=== PATIENT | male | born 1955 | race Caucasian/White ===

== ENCOUNTER 2017-10-01 14:45 | Emergency (ER) | payer OTHER ==
[~2017-10-01] VITALS: Ht 177.8 cm; Wt 68.0 kg
[~2017-10-01 14:45] MED LIST: METH10 PO; OXYC30 PO; OXYCODONE PO
[2017-10-01] MEDS ORDERED: METHADONE PO (15:46)
[2017-10-01] MEDS ORDERED: BUSPAR PO (15:46)
[2017-10-01 16:54] LABS: Influenza A Negative (NEGATIVE); Influenza B Negative (NEGATIVE)
[2017-10-01 17:00] LABS: BASOPHILS ABSOLUTE AUTO 0.03 K/mm3 (0.00-0.23); BASOPHILS PERCENT AUTO 0 % (0-2); EOSINOPHILS ABSOLUTE AUTO 0.02 K/mm3 (0.00-0.68); EOSINOPHILS PERCENT AUTO 0 % (0-6); Hematocrit 42.8 % (37.0-53.0); Hemoglobin 13.9 g/dL (13.5-17.5); IMMATURE GRAN ABSOLUTE AUTO 0.01 K/mm3 (0.00-0.10); IMMATURE GRAN PERCENT AUTO 0 % (0-1); LYMPHOCYTES ABSOLUTE AUTO 0.35 K/mm3 (0.84-5.20); LYMPHOCYTES PERCENT AUTO 5 % (21-46); MONOCYTES PERCENT AUTO 8 % (4-13); Mean Corpuscular HGB 30.3 pg (26.0-34.0); Mean Corpuscular HGB Conc 32.5 g/dL (31.5-36.5); Mean Corpuscular Volume 93 fL (80-100); NEUTROPHILS ABSOLUTE AUTO 6.28 K/mm3 (1.96-9.15); NEUTROPHILS PERCENT AUTO 86 % (41-73); RDW Coefficient Variation 12.4 % (11.7-14.2); RDW Standard Deviation 42.6 fL (35.1-46.3); Red Blood Cell Count 4.59 M/mm3 (4.30-5.90); White Blood Cell Count 7.29 K/mm3 (4.00-11.30)
[2017-10-01 17:02] LABS: Mean Platelet Volume 10.6 fL (9.1-12.4); Platelet Count 87 K/mm3 (150-400)
[2017-10-01 17:10] LABS: Alanine Aminotransfer (ALT/SGP 15 U/L (12-78); Albumin, Blood 3.5 g/dL (3.4-5.0); Alk Phos 48 U/L (50-136); Anion Gap 9 mmol/L (6-16); Aspartate Aminotrans (AST/SGOT 27 U/L (12-37); Bilirubin, Total 0.3 mg/dL (0.1-1.0); Blood Urea Nitrogen 19 mg/dL (8-24); Bun/Creatinine Ratio 15.4 (12.0-20.0); CO2, Blood 24 mmol/L (21-32); Calcium, Blood 8.9 mg/dL (8.5-10.1); Chloride, Blood 104 mmol/L (98-108); Creatinine, Blood 1.23 mg/dL (0.60-1.20); Ethanol (Alcohol), Blood, Med <3 mg/dL; Globulin, Blood 3.5 g/dL (2.2-4.0); Glomerular Filtration Rate >60 (60-); Glucose, Blood 88 mg/dL (70-99); Potassium, Blood 4.1 mmol/L (3.5-5.5); Sodium, Blood 137 mmol/L (136-145)
[2017-10-01 17:15] LABS: Source, Urine Clean Catch
[2017-10-01 17:17] LABS: Bilirubin, Urine Neg (Neg); Blood, Urine 3+ (Neg); Glucose Qualitative, Urine Neg (Neg); Ketones, Urine Neg (Neg); Leukocyte Esterase, Urine 1+ (Neg); Nitrite, Urine Neg (Neg); Protein, Urine 2+ (Neg); Specific Gravity, Urine 1.025 (1.003-1.022); Urobilinogen, Urine NORM (Normal)
[2017-10-01 17:23] LABS: Appearance, Urine Clear (Clear); Color, Urine Yellow (P-Yellow)
[2017-10-01 17:24] LABS: Bacteria Many /hpf; Hyaline Casts 0-2 /lpf (0-2); Mucus Light (0-Heavy); Red Blood Cells, Urine 0-2 /hpf (0-2); Squamous Epithelial Cells Not Seen /hpf (Few)
[2017-10-01 17:29] LABS: U Amphetamine Screen Not Detected; U Barbituate Screen Not Detected; U Benzodiazapine Screen Not Detected; U Cannabinoids Screen DETECTED; U Cocaine Screen Not Detected; U Methadone Screen DETECTED; U Methamphetamine Screen Not Detected
[2017-10-01 17:30] LABS: U Buprenorphine Screen Not Detected; U Opiates Screen Not Detected; U Oxycodone Screen Not Detected; U Phencyclidine Screen Not Detected; U Propoxyphene Screen Not Detected
[2017-10-01] MEDS ORDERED: Zithromax250 MG PO (17:40)
== END 2017-10-01 17:59 | disposition home or self-care (01) ==
LOC: ER 14:45
PROVIDERS: Emergency Medicine
DX: J18.9 Pneumonia, unspecified organism (principal); R53.83 Other fatigue; Z79.899 Other long term (current) drug therapy; F17.200 Nicotine dependence, unspecified, uncomplicated
CPT/HCPCS: 36415; 71046; 80053; 81001; 83690; 85025; 87086; 87804; 93005; 93010; 96374; 99284; G0480; J2405; J7030

== ENCOUNTER 2017-10-02 23:46 | Emergency (ER) | payer OTHER ==
[~2017-10-02] VITALS: Ht 177.8 cm; Wt 68.0 kg
[~2017-10-02 23:46] MED LIST changes: +BUSPAR PO; +METHADONE PO; +Zithromax250 MG PO
[2017-10-03 01:11] LABS: BASOPHILS ABSOLUTE AUTO 0.02 K/mm3 (0.00-0.23); BASOPHILS PERCENT AUTO 0 % (0-2); Hematocrit 41.8 % (37.0-53.0); Mean Corpuscular HGB 30.4 pg (26.0-34.0); Mean Corpuscular HGB Conc 33.5 g/dL (31.5-36.5); Mean Corpuscular Volume 91 fL (80-100); Mean Platelet Volume 9.8 fL (9.1-12.4); Platelet Count 104 K/mm3 (150-400); RDW Coefficient Variation 12.4 % (11.7-14.2); RDW Standard Deviation 40.9 fL (35.1-46.3); Red Blood Cell Count 4.61 M/mm3 (4.30-5.90); White Blood Cell Count 7.62 K/mm3 (4.00-11.30)
[2017-10-03 01:19] LABS: EOSINOPHILS PERCENT AUTO 0 % (0-6); IMMATURE GRAN ABSOLUTE AUTO 0.03 K/mm3 (0.00-0.10); IMMATURE GRAN PERCENT AUTO 0 % (0-1); LYMPHOCYTES ABSOLUTE AUTO 0.65 K/mm3 (0.84-5.20); LYMPHOCYTES PERCENT AUTO 9 % (21-46); MONOCYTES ABSOLUTE AUTO 0.51 K/mm3 (0.16-1.47); MONOCYTES PERCENT AUTO 7 % (4-13); NEUTROPHILS ABSOLUTE AUTO 6.41 K/mm3 (1.96-9.15); NEUTROPHILS PERCENT AUTO 84 % (41-73)
[2017-10-03 01:29] LABS: Alanine Aminotransfer (ALT/SGP 19 U/L (12-78); Albumin/Globulin Ratio 0.7 (0.8-1.8); Alk Phos 47 U/L (50-136); Anion Gap 8 mmol/L (6-16); Aspartate Aminotrans (AST/SGOT 47 U/L (12-37); Bilirubin, Total 0.3 mg/dL (0.1-1.0); Blood Urea Nitrogen 23 mg/dL (8-24); Bun/Creatinine Ratio 17.8 (12.0-20.0); CO2, Blood 26 mmol/L (21-32); Calcium, Blood 8.7 mg/dL (8.5-10.1); Chloride, Blood 101 mmol/L (98-108); Creatinine, Blood 1.29 mg/dL (0.60-1.20); Globulin, Blood 4.1 g/dL (2.2-4.0); Glomerular Filtration Rate >60 (60-); Glucose, Blood 99 mg/dL (70-99); Potassium, Blood 4.2 mmol/L (3.5-5.5); Sodium, Blood 135 mmol/L (136-145); Total Protein, Blood 7.1 g/dL (6.4-8.2)
== END 2017-10-03 03:20 | disposition left against medical advice (07) ==
LOC: ER 23:46
PROVIDERS: Emergency Medicine
DX: Z53.21 Procedure and treatment not carried out due to patient leaving prior to being seen by health care provider (principal); J44.9 Chronic obstructive pulmonary disease, unspecified; F17.210 Nicotine dependence, cigarettes, uncomplicated
CPT/HCPCS: 71046; 80053; 83605; 85025; 87040; 93005; 93010; 96365; 96366; 99283; J1956

== ENCOUNTER 2017-10-04 23:32 | Inpatient (IN) | payer OTHER ==
[~2017-10-04] VITALS: Ht 177.8 cm; Wt 68.0 kg
[2017-10-05 00:50] LABS: BASOPHILS ABSOLUTE AUTO 0.02 K/mm3 (0.00-0.23); BASOPHILS PERCENT AUTO 1 % (0-2); EOSINOPHILS PERCENT AUTO 0 % (0-6); Hematocrit 38.2 % (37.0-53.0); Hemoglobin 12.8 g/dL (13.5-17.5); Mean Corpuscular HGB 30.3 pg (26.0-34.0); Mean Corpuscular HGB Conc 33.5 g/dL (31.5-36.5); Mean Corpuscular Volume 90 fL (80-100); Mean Platelet Volume 9.6 fL (9.1-12.4); Platelet Count 110 K/mm3 (150-400); RDW Coefficient Variation 12.4 % (11.7-14.2); RDW Standard Deviation 41.2 fL (35.1-46.3); Red Blood Cell Count 4.23 M/mm3 (4.30-5.90); White Blood Cell Count 3.72 K/mm3 (4.00-11.30)
[2017-10-05 00:51] LABS: IMMATURE GRAN ABSOLUTE AUTO 0.01 K/mm3 (0.00-0.10); IMMATURE GRAN PERCENT AUTO 0 % (0-1); LYMPHOCYTES ABSOLUTE AUTO 0.34 K/mm3 (0.84-5.20); LYMPHOCYTES PERCENT AUTO 9 % (21-46); MONOCYTES ABSOLUTE AUTO 0.42 K/mm3 (0.16-1.47); MONOCYTES PERCENT AUTO 11 % (4-13); NEUTROPHILS ABSOLUTE AUTO 2.93 K/mm3 (1.96-9.15); NEUTROPHILS PERCENT AUTO 79 % (41-73)
[2017-10-05 01:04] LABS: Alanine Aminotransfer (ALT/SGP 34 U/L (12-78); Albumin, Blood 2.9 g/dL (3.4-5.0); Albumin/Globulin Ratio 0.7 (0.8-1.8); Alk Phos 47 U/L (50-136); Anion Gap 9 mmol/L (6-16); Aspartate Aminotrans (AST/SGOT 68 U/L (12-37); Bilirubin, Total 0.4 mg/dL (0.1-1.0); Blood Urea Nitrogen 21 mg/dL (8-24); Bun/Creatinine Ratio 21.3 (12.0-20.0); CO2, Blood 25 mmol/L (21-32); Calcium, Blood 8.7 mg/dL (8.5-10.1); Chloride, Blood 100 mmol/L (98-108); Creatinine, Blood 0.99 mg/dL (0.60-1.20); Globulin, Blood 4.3 g/dL (2.2-4.0); Glomerular Filtration Rate >60 (60-); Glucose, Blood 81 mg/dL (70-99); Sodium, Blood 134 mmol/L (136-145); Total Protein, Blood 7.2 g/dL (6.4-8.2); Troponin I <0.015 ng/mL (0.000-0.040)
[2017-10-05 08:36] LABS: Influenza A Negative (NEGATIVE); Influenza B Negative (NEGATIVE)
[2017-10-06 05:31] LABS: HCV Non Reactive (NR)
[2017-10-06] MEDS ORDERED: ACET325 PO (11:01)
[2017-10-06] MEDS ORDERED: GUAI600T33 PO (11:03)
[2017-10-06] MEDS ORDERED: ALBU2.5V5 NEB (11:03)
[2017-10-06] MEDS ORDERED: DULERA 100 MCG/13 GM INH (11:04)
[2017-10-06] MEDS ORDERED: LEVO750 PO (11:04)
== END 2017-10-06 16:04 | disposition home or self-care (01) | DRG 871 ==
LOC: ER 23:32 → ICUW 10-05 02:22 → SURS 10-05 02:22 → ICUW 10-05 02:24 → SURS 10-05 11:00 → ENPENDDIS 10-06 12:19 → SURS 10-06 16:04
PROVIDERS: Family Medicine; Internal Medicine; Physician Assistant
DX: A41.9 Sepsis, unspecified organism (principal); J18.9 Pneumonia, unspecified organism; J96.01 Acute respiratory failure with hypoxia; J44.0 Chronic obstructive pulmonary disease with (acute) lower respiratory infection; E87.1 Hypo-osmolality and hyponatremia; G89.4 Chronic pain syndrome; M54.9 Dorsalgia, unspecified; F17.210 Nicotine dependence, cigarettes, uncomplicated; Z79.891 Long term (current) use of opiate analgesic; Z79.899 Other long term (current) drug therapy
CPT/HCPCS: 36415; 71046; 80053; 80074; 83605; 83880; 84484; 85025; 87040; 87804; 92610; 93005; 93010; 94640; 94760; 94761; 99285; G8996; G8997; G8998; J0456; J0696; J2405; J7030; J7050; Q2038

== ENCOUNTER → 2023-12-02 | Outpatient (CLI) | payer OTHER ==
[~2023-12-02] MED LIST changes: +ACET325 PO; +ALBU2.5V5 NEB; +DULERA 100 MCG/13 GM INH; +GUAI600T33 PO; +LEVO750 PO
[2023-12-02 17:30] LABS: Albumin/Globulin Ratio 1.2 (0.8-1.8); Bilirubin, Total 0.5 mg/dL (0.1-1.0); Bun/Creatinine Ratio 14.8 (12.0-20.0); Calcium, Blood 10.2 mg/dL (8.5-10.1); Creatinine, Blood 1.22 mg/dL (0.60-1.20); Globulin, Blood 3.3 g/dL (2.2-4.0); Potassium, Blood 4.3 mmol/L (3.5-5.5); Total Protein, Blood 7.3 g/dL (6.4-8.2)
== END ==
LOC: LAB 15:26 → LAB SHORT 15:26
PROVIDERS: Family Medicine
DX: I10 Essential (primary) hypertension (principal)
CPT/HCPCS: 80053

== ENCOUNTER 2024-07-31 03:21 | Emergency (ER) | payer OTHER ==
[~2024-07-31] VITALS: Ht 180.3 cm; Wt 72.6 kg
[2024-07-31 03:40] VITALS: BP 165/91
[2024-07-31] MEDS ORDERED: Bumetanide 1 MG Tab PO ONE (03:45)
[2024-07-31] MEDS ORDERED: Doxycycline Hyclate 100 MG TAB PO ONE (03:45)
[2024-07-31] MEDS ORDERED: DOXY100 PO (03:53)
[2024-07-31] MEDS ORDERED: BUME2 PO (03:53)
== END 2024-07-31 04:04 | disposition home or self-care (01) ==
LOC: ER 03:21
DX: L03.116 Cellulitis of left lower limb (principal); J44.9 Chronic obstructive pulmonary disease, unspecified; I10 Essential (primary) hypertension; F17.210 Nicotine dependence, cigarettes, uncomplicated; Z79.899 Other long term (current) drug therapy
CPT/HCPCS: 99283; A9270

== ENCOUNTER 2024-09-14 06:43 | Observation (INO) | payer OTHER ==
[~2024-09-14] VITALS: Ht 167.6 cm; Wt 68.0 kg
[~2024-09-14 06:43] MED LIST changes: +BUME2 PO; +DOXY100 PO; -METHADONE PO; +Methadose10 MG/1 ML PO
[2024-09-14 07:57] LABS: CORONAVIRUS COVID-19 AG Negative (NEGATIVE); INFLUENZA A AG Negative (NEGATIVE); INFLUENZA B AG Negative (NEGATIVE)
[2024-09-14 07:58] LABS: BASOPHILS ABSOLUTE AUTO 0.03 K/mm3 (0.00-0.23); BASOPHILS PERCENT AUTO 1 % (0-2); Base Excess Venous 4.7 mmol/L; EOSINOPHILS ABSOLUTE AUTO 0.14 K/mm3 (0.00-0.68); EOSINOPHILS PERCENT AUTO 2 % (0-6); Hematocrit 40.2 % (37.0-53.0); Hemoglobin 13.5 g/dL (13.5-17.5); IMMATURE GRAN ABSOLUTE AUTO 0.04 K/mm3 (0.00-0.10); IMMATURE GRAN PERCENT AUTO 1 % (0-1); LYMPHOCYTES PERCENT AUTO 19 % (21-46); MONOCYTES PERCENT AUTO 10 % (4-13); Mean Corpuscular HGB Conc 33.6 g/dL (31.5-36.5); Mean Corpuscular Volume 92 fL (80-100); Mean Platelet Volume 8.9 fL (9.1-12.4); NEUTROPHILS ABSOLUTE AUTO 4.27 K/mm3 (1.96-9.15); NEUTROPHILS PERCENT AUTO 68 % (41-73); PCO2 Venous 63.9 mmHg (38-42); Platelet Count 168 K/mm3 (150-400); RDW Standard Deviation 41.4 fL (35.1-46.3); Red Blood Cell Count 4.35 M/mm3 (4.30-5.90); White Blood Cell Count 6.28 K/mm3 (4.00-11.30)
[2024-09-14 08:05] LABS: Source, Urine Clean Catch
[2024-09-14 08:23] LABS: Appearance, Urine Clear (Clear); Bilirubin, Urine Neg (Neg); Blood, Urine Neg (Neg); Color, Urine Yellow (P-Yellow); Glucose Qualitative, Urine Neg (Neg); Ketones, Urine Neg (Neg); Leukocyte Esterase, Urine Neg (Neg); Nitrite, Urine Neg (Neg); Protein, Urine 2+ (Neg); Specific Gravity, Urine 1.025 (1.003-1.022); Urobilinogen, Urine 1+ (Normal)
[2024-09-14 08:25] LABS: Bacteria Not Seen /hpf; Hyaline Casts 0-2 /lpf (0-2); Mucus Light (0-Heavy); Red Blood Cells, Urine 0-2 /hpf (0-2); Squamous Epithelial Cells Not Seen /hpf (Few); White Blood Cells, Urine 0-2 /hpf (0-5)
[2024-09-14 08:28] LABS: Albumin, Blood 3.8 g/dL (3.4-5.0); Bilirubin, Total 0.4 mg/dL (0.1-1.0); Bun/Creatinine Ratio 20.9 (12.0-20.0); Calcium, Blood 10.2 mg/dL (8.5-10.1); Creatinine, Blood 1.1 mg/dL (0.60-1.20); Globulin, Blood 3.8 g/dL (2.2-4.0); Magnesium, Blood 2.2 mg/dL (1.6-2.4); Potassium, Blood 4.1 mmol/L (3.5-5.5); Total Protein, Blood 7.6 g/dL (6.4-8.2)
[2024-09-14 08:28] LABS: U Amphetamine Screen Not Detected; U Barbituate Screen Not Detected; U Benzodiazapine Screen Not Detected; U Buprenorphine Screen Not Detected; U Cannabinoids Screen Not Detected; U Cocaine Screen Not Detected; U Methadone Screen DETECTED; U Methamphetamine Screen Not Detected; U Opiates Screen Not Detected; U Oxycodone Screen Not Detected; U Phencyclidine Screen Not Detected
[2024-09-14] MEDS ORDERED: Ipratropium/Albuterol SulF 2.5-0.5MG/3 ML Amp INH ONE (08:30)
[2024-09-14] MEDS ORDERED: Azithromycin 250 MG Tab PO ONE (08:30)
[2024-09-14] MEDS ORDERED: PredniSONE 20 MG Tab PO ONE (08:30)
[2024-09-14] MEDS ORDERED: Buspirone HCl15 MG PO (08:51)
[2024-09-14] MEDS ORDERED: ALBUTEROL SULFATE HF (09:44)
[2024-09-14] MEDS ORDERED: ALBU90OI INH (09:47)
[2024-09-14] MEDS ORDERED: LATUDA20 M1 PO (09:49)
[2024-09-14] MEDS ORDERED: HYDCHL25 PO (09:49)
[2024-09-14] MEDS ORDERED: LOSA50 PO (09:49)
[2024-09-14] MEDS ORDERED: COMBIVENT RESPIM4 G1 INH (09:49)
[2024-09-14] MEDS ORDERED: OMEPRAZOLE20 M2 PO (09:50)
[2024-09-14] MEDS ORDERED: INDERAL XL80 M1 PO (09:51)
[2024-09-14] MEDS ORDERED: ROSUVASTATIN CA10 MG PO (09:51)
[2024-09-14] MEDS ORDERED: SILD50TA PO (09:52)
[2024-09-14 09:54] LABS: Base Excess Venous 4.7 mmol/L; PCO2 Venous 59.7 mmHg (38-42); pH Blood Venous 7.32 (7.34-7.37)
[2024-09-14] MEDS ORDERED: FLU VACC TS2024-25(6MOS UP)/PF 45 MCG/0.5 ML SYRINGE IM SCH (10:40)
[2024-09-14] MEDS ORDERED: Albuterol 2.5 MG/3 ML VIAL INH PRN (10:40)
[2024-09-14] MEDS ORDERED: Prochlorperazine Edisylate 10 mg Vial IV PRN (10:40)
[2024-09-14] MEDS ORDERED: Ipratropium/Albuterol SulF 2.5-0.5MG/3 ML Amp INH PRN (10:55)
[2024-09-14] MEDS ORDERED: Losartan Potassium 50 MG Tab PO SCH (11:00)
[2024-09-14] MEDS ORDERED: BusPIRone HCl 10 MG Tab PO SCH (14:00)
[2024-09-14 14:05] VITALS: BP 140/67
[2024-09-14] MEDS ORDERED: Seroquel Xr50 MG PO (16:12)
[2024-09-14] MEDS ORDERED: Rosuvastatin Calcium 10 MG Tab PO SCH (18:00)
--- NOTE | 2024-09-14 18:12 | NUR ---
SHIFT SUMMARY PT A&OX2 W/ CONFUSION, VSS, AMB IND, TOLERATING PO, AND DENIED PAIN. 1:1 SITTER PRESENT. PT PACED ROOM T/O SHIFT, BUT WAS REDIRECTABLE. THIS RN SPOKE TO PT'S NIECE RAFAEL AND PROVIDED UPDATE W/ PT'S AUTHORIZATION. RAFAEL'S PHONE NUMBER LOCATED IN PHYSICAL CHART. PT SEMI COOPERATIVE W/ CARE AND REFUSED SOME CARE AT TIMES. CALL LIGHT WITHIN REACH.
[2024-09-14 20:07] VITALS: BP 138/83
[2024-09-14] MEDS ORDERED: Sennosides 8.6 MG Tab PO SCH (21:00)
[2024-09-14] MEDS ORDERED: QUEtiapine Fumarate 50 MG TAB PO SCH (21:00)
[2024-09-15 04:00] VITALS: BP 115/77
[2024-09-15] MEDS ORDERED: Methadone HCL 10 MG TAB PO SCH (06:00)
[2024-09-15] MEDS ORDERED: Omeprazole 20 MG CapCR PO SCH (06:00)
--- NOTE | 2024-09-15 06:07 | NUR ---
SHIFT SUMMARY PT MOVED FROM ROOM 308 TO ROOM 347 AT START OF SHIFT. PT ORIENTED TO SELF AND "ROSEBURG". PT COOPERATIVE WITH SOME CARE, BUT REFUSING TO CHANGE INTO A HOSPITAL GOWN, REFUSING SKIN CHECK, AND VERY RELUCTANTLY ALLOWED THIS RN TO FLUSH HIS IV. PT AMBULATING IN ROOM AND WANDERS INTO HALLWAY TO WALK, EASY TO REDIRECT BACK TO HIS ROOM. FOUND CADDIE, CIGARETTES, AND A RIO- THESE WERE PLACED IN HIS LOCKED MEDICATION DRAWER. PT SLEPT SHORT PERIODS THROUGH THE NIGHT. BED IN LOWEST POSITION, CALL LIGHT WITHIN REACH.
[2024-09-15 07:21] VITALS: BP 129/69
[2024-09-15 08:39] LABS: BASOPHILS ABSOLUTE AUTO 0.03 K/mm3 (0.00-0.23); BASOPHILS PERCENT AUTO 0 % (0-2); EOSINOPHILS ABSOLUTE AUTO 0.01 K/mm3 (0.00-0.68); EOSINOPHILS PERCENT AUTO 0 % (0-6); Hematocrit 37.4 % (37.0-53.0); Hemoglobin 12.8 g/dL (13.5-17.5); IMMATURE GRAN ABSOLUTE AUTO 0.03 K/mm3 (0.00-0.10); IMMATURE GRAN PERCENT AUTO 0 % (0-1); LYMPHOCYTES ABSOLUTE AUTO 1.19 K/mm3 (0.84-5.20); LYMPHOCYTES PERCENT AUTO 14 % (21-46); MONOCYTES ABSOLUTE AUTO 0.82 K/mm3 (0.16-1.47); MONOCYTES PERCENT AUTO 9 % (4-13); Mean Corpuscular HGB 31.3 pg (26.0-34.0); Mean Corpuscular HGB Conc 34.2 g/dL (31.5-36.5); Mean Corpuscular Volume 91 fL (80-100); Mean Platelet Volume 9.2 fL (9.1-12.4); NEUTROPHILS ABSOLUTE AUTO 6.67 K/mm3 (1.96-9.15); NEUTROPHILS PERCENT AUTO 76 % (41-73); Platelet Count 172 K/mm3 (150-400); RDW Coefficient Variation 11.9 % (11.7-14.2); RDW Standard Deviation 40.1 fL (35.1-46.3); Red Blood Cell Count 4.09 M/mm3 (4.30-5.90); White Blood Cell Count 8.75 K/mm3 (4.00-11.30)
[2024-09-15] MEDS ORDERED: Enoxaparin 40 MG/0.4 ML SYR SC SCH (09:00)
[2024-09-15] MEDS ORDERED: Metoprolol Succinate 25 MG TABCR PO SCH (09:00)
[2024-09-15] MEDS ORDERED: HydroCHLOROthiazide 25 mg Tab PO SCH (09:00)
[2024-09-15] MEDS ORDERED: PredniSONE 20 MG Tab PO SCH (09:00)
[2024-09-15 09:15] LABS: Albumin, Blood 3.4 g/dL (3.4-5.0); Albumin/Globulin Ratio 0.9 (0.8-1.8); Bilirubin, Total 0.7 mg/dL (0.1-1.0); Bun/Creatinine Ratio 19.8 (12.0-20.0); Creatinine, Blood 1.06 mg/dL (0.60-1.20); Globulin, Blood 3.6 g/dL (2.2-4.0); Potassium, Blood 3.8 mmol/L (3.5-5.5)
--- NOTE | 2024-09-15 14:57 | NUR ---
THIS RN ASKED PT WHO HE WOULD LIKE TO HAVE NEXT OF KIN, PT WAS HESITANT TO MAKE A DECISION AT FIRST BUT THEN PT STATED THAT HE WISHED HIS NIECE, RAFAEL "ERIKA" TO BE LISTED FIRST CONTACT AND TO LIST FRIEND "MICHELET" TO BE LISTED SECOND CONTACT. THIS RN ASKED IF PT FELT SAFE GOING BACK TO LIVE WITH MICHELET. PT STATED THAT HE "WANTED TO GET OUT OF THAT PLACE". AND DOES NOT WANT TO GO BACK WITH MICHELET/HOME AT DISCHARGE.
[2024-09-15 15:15] VITALS: BP 104/66
[2024-09-15 19:24] VITALS: BP 105/66
--- NOTE | 2024-09-15 19:48 | NUR ---
NO ACUTE CHANGES. PT CALM AND COOPERATIVE WITH STAFF THIS SHIFT. CONFUSED BUT REDIRECTABLE. INDEPENDENTLY WALKING IN CHEN WAY AND IN ROOM. CASE MANAGEMENT INVOLVED. PT VERBALIZED THAT HE DID NOT WANT TO BE DISCHARGED TO HOME OF MICHELET. PT STATED THAT HE HAS BEEN TRYING TO GET OUT AND THAT WAS WHY HE WAS "HERE" (HOSPITAL).
[2024-09-16 03:51] VITALS: BP 145/82
[2024-09-16 04:23] VITALS: BP 120/75
--- NOTE | 2024-09-16 04:57 | NUR ---
SHIFT SUMMARY PT CONTINUES TO BE ORIENTED TO SELF AND "ROSE[place]G". WANDERS IN ROOM AND CHEN WITH STEADY GAIT, EASY TO REDIRECT. PT REFUSING TO CHANGE INTO HOSPITAL PANTS AND GOWN, REFUSING SKIN ASSESSMENT. SLEPT SHORT PERIODS THROUGH THE NIGHT. BED IN LOWEST POSITION, CALL LIGHT WITHIN REACH, SIDERAILS UP X2.
[2024-09-16 07:18] VITALS: BP 118/78
[2024-09-16 09:09] LABS: Bicarbonate Venous 26.6 mmol/L (24.0-30.0); PCO2 Venous 43.4 mmHg (38-42); pH Blood Venous 7.41 (7.34-7.37)
[2024-09-16 15:07] VITALS: BP 117/95
[2024-09-16] MEDS ORDERED: HYDCHL25 PO (15:27)
[2024-09-16] MEDS ORDERED: LOSA50 PO (15:27)
[2024-09-16] MEDS ORDERED: METO25ER PO (15:28)
[2024-09-16] MEDS ORDERED: ROSUVASTATIN CA10 MG PO (15:28)
[2024-09-16] MEDS ORDERED: SENN187 PO (15:29)
[2024-09-16] MEDS ORDERED: Prednisone10 MG PO (15:30)
[2024-09-16] MEDS ORDERED: SPIRIVA RESPIMAT4 G3 INH (15:31)
--- NOTE | 2024-09-16 17:47 | NUR ---
PT DISCHARGED HOME WITH HOME HEALTH. THIS RN WAS NOT AVAILABLE TO DISCUSS DISCHARGE INSTRUCTIONS WITH PT AND CA FRIEND. ASHLEE LACEY DISCUSSED DISCHARGE PAPERWORK WITH PT AND FRIEND. ALERT AND CONFUSED. INDEPENDENT
== END 2024-09-16 16:38 | disposition home health service (06) ==
LOC: ER 06:43 → ERHOLD 06:44 → MEDS 06:44 → ERHOLD 13:35 → MEDS 13:59
PROVIDERS: Internal Medicine; Student in an Organized Health Care Education/Training Program; ADMIT Internal Medicine
DX: G93.41 Metabolic encephalopathy (principal); J44.1 Chronic obstructive pulmonary disease with (acute) exacerbation; J96.02 Acute respiratory failure with hypercapnia; I10 Essential (primary) hypertension; G89.4 Chronic pain syndrome; F03.90 Unspecified dementia, unspecified severity, without behavioral disturbance, psychotic disturbance, mood disturbance, and anxiety; K21.9 Gastro-esophageal reflux disease without esophagitis; E78.5 Hyperlipidemia, unspecified; F17.210 Nicotine dependence, cigarettes, uncomplicated; Z86.73 Personal history of transient ischemic attack (TIA), and cerebral infarction without residual deficits; Z79.899 Other long term (current) drug therapy
CPT/HCPCS: 36415; 70450; 71045; 80053; 81001; 82140; 82803; 83735; 85025; 87428-QW; 93005; 93010; 94640; 94664; 94760; 96372; 99285-25; A9270; G0378; J1650; J7512

== ENCOUNTER → 2024-10-05 | Outpatient (CLI) | payer OTHER ==
[~2024-10-05] MED LIST changes: +ALBU90OI INH; +ALBUTEROL SULFATE HF; +Buspirone HCl15 MG PO; +COMBIVENT RESPIM4 G1 INH; +HYDCHL25 PO; +INDERAL XL80 M1 PO; +LATUDA20 M1 PO; +LOSA50 PO; +METO25ER PO; +OMEPRAZOLE20 M2 PO; +Prednisone10 MG PO; +ROSUVASTATIN CA10 MG PO; +SENN187 PO; +SILD50TA PO; +SPIRIVA RESPIMAT4 G3 INH; +Seroquel Xr50 MG PO
[2024-10-05 16:31] LABS: BASOPHILS ABSOLUTE AUTO 0.05 K/mm3 (0.00-0.23); BASOPHILS PERCENT AUTO 1 % (0-2); EOSINOPHILS ABSOLUTE AUTO 0.19 K/mm3 (0.00-0.68); EOSINOPHILS PERCENT AUTO 4 % (0-6); Hematocrit 42.6 % (37.0-53.0); Hemoglobin 14.1 g/dL (13.5-17.5); IMMATURE GRAN ABSOLUTE AUTO 0.01 K/mm3 (0.00-0.10); IMMATURE GRAN PERCENT AUTO 0 % (0-1); LYMPHOCYTES ABSOLUTE AUTO 1.42 K/mm3 (0.84-5.20); LYMPHOCYTES PERCENT AUTO 29 % (21-46); MONOCYTES PERCENT AUTO 8 % (4-13); Mean Corpuscular HGB 30.9 pg (26.0-34.0); Mean Corpuscular HGB Conc 33.1 g/dL (31.5-36.5); Mean Corpuscular Volume 93 fL (80-100); Mean Platelet Volume 9.5 fL (9.1-12.4); NEUTROPHILS ABSOLUTE AUTO 2.89 K/mm3 (1.96-9.15); NEUTROPHILS PERCENT AUTO 58 % (41-73); Platelet Count 206 K/mm3 (150-400); RDW Standard Deviation 41.6 fL (35.1-46.3); Red Blood Cell Count 4.56 M/mm3 (4.30-5.90); White Blood Cell Count 4.96 K/mm3 (4.00-11.30)
[2024-10-05 16:54] LABS: Percent Saturation 35.4 % (20.0-50.0)
[2024-10-05 17:14] LABS: Albumin, Blood 3.9 g/dL (3.4-5.0); Albumin/Globulin Ratio 1.1 (0.8-1.8); Bilirubin, Total 0.5 mg/dL (0.1-1.0); Bun/Creatinine Ratio 16.7 (12.0-20.0); Creatinine, Blood 1.2 mg/dL (0.60-1.20); Globulin, Blood 3.6 g/dL (2.2-4.0); Potassium, Blood 4.1 mmol/L (3.5-5.5); Total Protein, Blood 7.5 g/dL (6.4-8.2)
== END ==
LOC: LAB 14:32 → LAB SHORT 14:32
PROVIDERS: Family Medicine
DX: D64.9 Anemia, unspecified (principal); I10 Essential (primary) hypertension; I70.90 Unspecified atherosclerosis; R60.0 Localized edema; Z87.891 Personal history of nicotine dependence; G30.8 Other Alzheimer's disease; F02.C3 Dementia in other diseases classified elsewhere, severe, with mood disturbance
CPT/HCPCS: 80053; 82607; 82728; 82746; 83540; 83550; 83880; 85025

== ENCOUNTER 2024-11-01 14:55 | Emergency (ER) | payer OTHER ==
[~2024-11-01] VITALS: Ht 172.7 cm; Wt 61.2 kg
[2024-11-01 15:10] VITALS: BP 129/76
[2024-11-01] MEDS ORDERED: CEPH500 PO (15:24)
== END 2024-11-01 15:34 | disposition home or self-care (01) ==
LOC: ER 14:55
DX: L03.116 Cellulitis of left lower limb (principal); L03.115 Cellulitis of right lower limb; F17.210 Nicotine dependence, cigarettes, uncomplicated; K21.9 Gastro-esophageal reflux disease without esophagitis; J44.9 Chronic obstructive pulmonary disease, unspecified; Z79.52 Long term (current) use of systemic steroids; Z79.899 Other long term (current) drug therapy
CPT/HCPCS: 99282

== ENCOUNTER 2024-12-29 15:04 | Emergency (ER) | payer OTHER ==
[~2024-12-29] VITALS: Ht 177.8 cm; Wt 77.1 kg
[~2024-12-29 15:04] MED LIST changes: +CEPH500 PO
[2024-12-29 15:12] VITALS: BP 139/82
[2024-12-29 16:00] LABS: BASOPHILS ABSOLUTE AUTO 0.04 K/mm3 (0.00-0.23); BASOPHILS PERCENT AUTO 1 % (0-2); EOSINOPHILS ABSOLUTE AUTO 0.08 K/mm3 (0.00-0.68); EOSINOPHILS PERCENT AUTO 1 % (0-6); Hematocrit 41.1 % (37.0-53.0); Hemoglobin 13.9 g/dL (13.5-17.5); IMMATURE GRAN ABSOLUTE AUTO 0.02 K/mm3 (0.00-0.10); IMMATURE GRAN PERCENT AUTO 0 % (0-1); LYMPHOCYTES ABSOLUTE AUTO 1.25 K/mm3 (0.84-5.20); LYMPHOCYTES PERCENT AUTO 16 % (21-46); MONOCYTES ABSOLUTE AUTO 0.76 K/mm3 (0.16-1.47); MONOCYTES PERCENT AUTO 10 % (4-13); Mean Corpuscular HGB 31.2 pg (26.0-34.0); Mean Corpuscular HGB Conc 33.8 g/dL (31.5-36.5); Mean Corpuscular Volume 92 fL (80-100); Mean Platelet Volume 8.8 fL (9.1-12.4); NEUTROPHILS ABSOLUTE AUTO 5.47 K/mm3 (1.96-9.15); NEUTROPHILS PERCENT AUTO 72 % (41-73); Platelet Count 218 K/mm3 (150-400); RDW Coefficient Variation 11.9 % (11.7-14.2); RDW Standard Deviation 40.3 fL (35.1-46.3); Red Blood Cell Count 4.45 M/mm3 (4.30-5.90); White Blood Cell Count 7.62 K/mm3 (4.00-11.30)
[2024-12-29 16:19] LABS: Albumin, Blood 3.9 g/dL (3.4-5.0); Albumin/Globulin Ratio 1.1 (0.8-1.8); Bilirubin, Total 0.6 mg/dL (0.1-1.0); Bun/Creatinine Ratio 16.3 (12.0-20.0); Calcium, Blood 10.5 mg/dL (8.5-10.1); Creatinine, Blood 1.04 mg/dL (0.60-1.20); Globulin, Blood 3.7 g/dL (2.2-4.0); Potassium, Blood 4.3 mmol/L (3.5-5.5); Total Protein, Blood 7.6 g/dL (6.4-8.2)
== END 2024-12-29 17:14 | disposition home or self-care (01) ==
LOC: ER 15:04
PROVIDERS: Student in an Organized Health Care Education/Training Program
DX: R06.02 Shortness of breath (principal); J44.9 Chronic obstructive pulmonary disease, unspecified; I10 Essential (primary) hypertension; K21.9 Gastro-esophageal reflux disease without esophagitis; F17.210 Nicotine dependence, cigarettes, uncomplicated; Z79.52 Long term (current) use of systemic steroids; Z79.899 Other long term (current) drug therapy
CPT/HCPCS: 71045; 80053; 84484; 85025; 93005; 93010; 99285-25

== ENCOUNTER 2025-01-04 07:37 | Emergency (ER) | payer OTHER ==
[~2025-01-04] VITALS: Ht 170.2 cm; Wt 68.0 kg
[2025-01-04 08:33] LABS: BASOPHILS ABSOLUTE AUTO 0.05 K/mm3 (0.00-0.23); BASOPHILS PERCENT AUTO 1 % (0-2); EOSINOPHILS ABSOLUTE AUTO 0.18 K/mm3 (0.00-0.68); EOSINOPHILS PERCENT AUTO 3 % (0-6); Hematocrit 40.3 % (37.0-53.0); Hemoglobin 13.1 g/dL (13.5-17.5); IMMATURE GRAN ABSOLUTE AUTO 0.02 K/mm3 (0.00-0.10); IMMATURE GRAN PERCENT AUTO 0 % (0-1); LYMPHOCYTES ABSOLUTE AUTO 1.18 K/mm3 (0.84-5.20); LYMPHOCYTES PERCENT AUTO 21 % (21-46); MONOCYTES ABSOLUTE AUTO 0.52 K/mm3 (0.16-1.47); MONOCYTES PERCENT AUTO 9 % (4-13); Mean Corpuscular HGB 30.3 pg (26.0-34.0); Mean Corpuscular HGB Conc 32.5 g/dL (31.5-36.5); Mean Corpuscular Volume 93 fL (80-100); Mean Platelet Volume 8.7 fL (9.1-12.4); NEUTROPHILS ABSOLUTE AUTO 3.66 K/mm3 (1.96-9.15); NEUTROPHILS PERCENT AUTO 65 % (41-73); Platelet Count 272 K/mm3 (150-400); RDW Coefficient Variation 11.8 % (11.7-14.2); RDW Standard Deviation 40.7 fL (35.1-46.3); Red Blood Cell Count 4.32 M/mm3 (4.30-5.90); White Blood Cell Count 5.61 K/mm3 (4.00-11.30)
[2025-01-04 08:50] LABS: Albumin, Blood 3.6 g/dL (3.4-5.0); Bilirubin, Total 0.3 mg/dL (0.1-1.0); Bun/Creatinine Ratio 18.1 (12.0-20.0); Calcium, Blood 9.8 mg/dL (8.5-10.1); Creatinine, Blood 1.16 mg/dL (0.60-1.20); Globulin, Blood 3.6 g/dL (2.2-4.0); Magnesium, Blood 2.1 mg/dL (1.6-2.4); Phosphorus, Blood 2.4 mg/dL (2.5-4.9); Total Protein, Blood 7.2 g/dL (6.4-8.2)
[2025-01-04 09:30] VITALS: BP 117/104
[2025-01-04 10:09] LABS: Influenza A, PCR NEGATIVE (NEGATIVE); Influenza B, PCR NEGATIVE (NEGATIVE); Resp Syncytial Virus, PCR NEGATIVE (NEGATIVE); SARS-Cov-2 (COVID-19) PCR, MMC NEGATIVE (NEGATIVE)
[2025-01-04] MEDS ORDERED: DOXY100 PO (11:25)
[2025-01-04] MEDS ORDERED: Doxycycline Hyclate 100 MG TAB PO ONE (11:25)
== END 2025-01-04 11:34 | disposition home or self-care (01) ==
LOC: ER 07:37
PROVIDERS: Student in an Organized Health Care Education/Training Program
DX: J40 Bronchitis, not specified as acute or chronic (principal); F03.90 Unspecified dementia, unspecified severity, without behavioral disturbance, psychotic disturbance, mood disturbance, and anxiety; I10 Essential (primary) hypertension; J43.9 Emphysema, unspecified; F17.210 Nicotine dependence, cigarettes, uncomplicated; Z79.899 Other long term (current) drug therapy; Z11.52 Encounter for screening for COVID-19
CPT/HCPCS: 0241U; 71046; 80053; 83735; 83880; 84100; 84484; 85025; 93005; 93010; 99285-25; A9270

== ENCOUNTER 2025-01-18 12:36 | Emergency (ER) | payer OTHER ==
[~2025-01-18] VITALS: Ht 177.8 cm; Wt 72.6 kg
[2025-01-18 12:42] VITALS: BP 105/68
== END 2025-01-18 17:16 | disposition home or self-care (01) ==
LOC: ER 12:36
DX: J44.9 Chronic obstructive pulmonary disease, unspecified (principal); F03.90 Unspecified dementia, unspecified severity, without behavioral disturbance, psychotic disturbance, mood disturbance, and anxiety; K21.9 Gastro-esophageal reflux disease without esophagitis; I10 Essential (primary) hypertension; F17.210 Nicotine dependence, cigarettes, uncomplicated; Z79.899 Other long term (current) drug therapy
CPT/HCPCS: 99282

== ENCOUNTER 2025-04-04 07:21 | Inpatient (IN) | payer OTHER ==
[~2025-04-04] VITALS: Ht 177.8 cm; Wt 54.2 kg
[~2025-04-04 07:21] MED LIST changes: -Methadose10 MG/1 ML PO
[2025-04-04] MEDS ORDERED: Ipratropium/Albuterol SulF 2.5-0.5MG/3 ML Amp INH ONE (08:00)
[2025-04-04 08:06] LABS: BASOPHILS ABSOLUTE AUTO 0.03 K/mm3 (0.00-0.23); BASOPHILS PERCENT AUTO 0 % (0-2); EOSINOPHILS ABSOLUTE AUTO 0.00 K/mm3 (0.00-0.68); EOSINOPHILS PERCENT AUTO 0 % (0-6); Hematocrit 43.9 % (37.0-53.0); Hemoglobin 14.7 g/dL (13.5-17.5); IMMATURE GRAN ABSOLUTE AUTO 0.01 K/mm3 (0.00-0.10); IMMATURE GRAN PERCENT AUTO 0 % (0-1); LYMPHOCYTES ABSOLUTE AUTO 0.28 K/mm3 (0.84-5.20); LYMPHOCYTES PERCENT AUTO 3 % (21-46); MONOCYTES ABSOLUTE AUTO 0.52 K/mm3 (0.16-1.47); MONOCYTES PERCENT AUTO 6 % (4-13); Mean Corpuscular HGB Conc 33.5 g/dL (31.5-36.5); Mean Corpuscular Volume 93 fL (80-100); NEUTROPHILS ABSOLUTE AUTO 7.78 K/mm3 (1.96-9.15); NEUTROPHILS PERCENT AUTO 90 % (41-73); NRBC ABSOLUTE 0.00 K/mm3 (0.00-0.02); NRBC Auto 0.0 /100 WBC (0.0-0.2); Platelet Count 216 K/mm3 (150-400); RDW Coefficient Variation 12.3 % (11.7-14.2); RDW Standard Deviation 42.5 fL (35.1-46.3)
[2025-04-04 08:22] LABS: Alanine Aminotransfer (ALT/SGP 22.0 U/L (12-78); Albumin, Blood 4.1 g/dL (3.4-5.0); Albumin/Globulin Ratio 0.9 (0.8-1.8); Anion Gap 7.0 mmol/L (3-11); Aspartate Aminotrans (AST/SGOT 31.0 U/L (12-37); Bilirubin, Total 0.8 mg/dL (0.1-1.0); Blood Urea Nitrogen 17.0 mg/dL (8-24); CO2, Blood 28.0 mmol/L (21-32); Calcium, Blood 10.3 mg/dL (8.5-10.1); Chloride, Blood 103.0 mmol/L (98-108); Creatinine, Blood 0.91 mg/dL (0.60-1.20); Globulin, Blood 4.4 g/dL (2.2-4.0); Glucose, Blood 159.0 mg/dL (70-99); Potassium, Blood 4.2 mmol/L (3.5-5.5); Sodium, Blood 134.0 mmol/L (136-145); Total Protein, Blood 8.5 g/dL (6.4-8.2)
[2025-04-04 08:53] LABS: pH Blood Venous 7.31 (7.34-7.37)
[2025-04-04] MEDS ORDERED: Albuterol 2.5 MG/3 ML VIAL INH SCH (09:30)
[2025-04-04 09:31] LABS: Influenza A, PCR NEGATIVE (NEGATIVE); Influenza B, PCR NEGATIVE (NEGATIVE); Resp Syncytial Virus, PCR NEGATIVE (NEGATIVE); SARS-Cov-2 (COVID-19) PCR, MMC NEGATIVE (NEGATIVE)
[2025-04-04] MEDS ORDERED: Ondansetron HCl 2 MG / ML 2ML Vial IV PRN (11:50)
[2025-04-04] MEDS ORDERED: Ipratropium/Albuterol SulF 2.5-0.5MG/3 ML Amp INH SCH (11:50)
[2025-04-04] MEDS ORDERED: Furosemide 10 MG / ML 2ML Vial IV SCH (12:00)
[2025-04-04] MEDS ORDERED: HydrALAZINE HCl 20 MG / ML 1ML Vial IV PRN (13:05)
[2025-04-04] MEDS ORDERED: Tiotropium Bromide 2.5 MCG/ACT MIST INHAL (10 ACT/4 GM) INH SCH (13:10)
[2025-04-04 13:17] VITALS: BP 137/72
[2025-04-04 16:27] LABS: Source, Urine Clean Catch
[2025-04-04 16:32] LABS: Bilirubin, Urine Neg (Neg); Glucose Qualitative, Urine Neg (Neg); Ketones, Urine Neg (Neg); Leukocyte Esterase, Urine Neg (Neg); Protein, Urine Neg (Neg); Specific Gravity, Urine 1.015 (1.003-1.022); Urobilinogen, Urine NORM (Normal)
[2025-04-04 16:36] LABS: Color, Urine Pale Yellow (P-Yellow)
--- NOTE | 2025-04-04 18:36 | NUR ---
1310- PT TO MEDICAL FLOOR IN STABLE CONDITION. PT ON RA.
--- NOTE | 2025-04-04 18:36 | NUR ---
SUMMARY- PT IS AAOX1 TO SELF ONLY THIS SHIFT. PT DOES NOT USE THE CALL LIGHT APPROPRIATELY. PT IS IMPULSIVE, BUT IS NOT TRYING TO GET OOB OFTEN UNLESS HE HAS TO USE THE BATHROOM. PT IS MODERATLY REDIRECTABLE. PT ON RA. X1 ASSIST TO BATHROOM WITH WALKER AND GAIT BELT. PT DENIES PAIN. NO ACUTE EVENTS THIS SHIFT.
[2025-04-04 19:52] VITALS: BP 116/60
[2025-04-04 23:58] VITALS: BP 122/68
[2025-04-05 04:02] VITALS: BP 107/61
--- NOTE | 2025-04-05 05:03 | NUR ---
SHIFT SUMMARY: PT AOX1-[address] TO A DEGREE. AT TIMES KNOWS HES AT THE HOSPITAL. OTHER TIMES HE THINKS HE IS AT [facility]. PT CA,\LM AND COOPERATIVE IN CARE UNTIL NEEDING TO BE WOKEN UP FOR LABS. WOULD NOT HOLD STILL OR ALLOW STAFF TO TOUCH HIM. PT LOUDLY REQUEST TO LET HIM SLEEP AND COME BACK LATER. PT HAVING REGULAR DELUSIONS AND HALLUCINATIONS. SOMETIMES ENDORSING THAT THERE IS A DOG IN THE ROOM AND AT TIMES SPEAKING WORD SALAD. HAS BEEN CONTINENT IN VOIDS, EITHER USING THE URINAL OR THE RESTROOM. IS IMPULSIVE, ATTEMPTING TO GET UP DESPITE BEING UNSTEADY ON FEET BUT CAN BE REDIRECTED. BED ALARM IN PLACE. SOME ANXIETY AND IMPULSIVENESS, MEDICATED PER EMR. PT IN BED SLEEPING, BED IN LOWEST POSITION, CALL LIGHT IN REACH. CONTINUING CARE.
[2025-04-05 07:36] VITALS: BP 124/66
[2025-04-05 08:52] LABS: Anion Gap 8.0 mmol/L (3-11); Blood Urea Nitrogen 23.0 mg/dL (8-24); CO2, Blood 31.0 mmol/L (21-32); Calcium, Blood 9.7 mg/dL (8.5-10.1); Chloride, Blood 101.0 mmol/L (98-108); Creatinine, Blood 1.06 mg/dL (0.60-1.20); Glucose, Blood 90.0 mg/dL (70-99); Potassium, Blood 3.7 mmol/L (3.5-5.5); Sodium, Blood 136.0 mmol/L (136-145)
[2025-04-05] MEDS ORDERED: Enoxaparin 40 MG/0.4 ML SYR SC SCH (09:00)
--- NOTE | 2025-04-05 10:23 | NUR ---
0830- VERBAL FROM KARTHIK TO ORDER RESPIRATORY PANEL.
[2025-04-05] MEDS ORDERED: CefTRIAXone Sodium 1,000 MG in NS 100 ML IV SCH (11:00)
[2025-04-05] MEDS ORDERED: NS 250 ML IV PRN (11:05)
[2025-04-05 11:27] VITALS: BP 147/96
[2025-04-05 11:45] LABS: Influenza A/2009-H1 Not Detected (NOT DETECT); SARS-Cov-2 (COVID-19), BioFire Not Detected (NOT DETECT)
[2025-04-05 15:33] VITALS: BP 147/98
[2025-04-05 19:52] VITALS: BP 130/77
--- NOTE | 2025-04-05 19:53 | NUR ---
SUMMARY- AAOX0 THIS SHIFT. PT KNEW HIS NAME BUT COULD NOT TELL ME HIS . X1 ASSIST TO THE BATHROOM. PT TRIED GETTING OOB MULTIPLE TIMES THIS SHIFT. ONCE WE STARTED BRINGING THE PT TO THE BATHROOM TO URINATE WITH A X1 ASSIST, PT WAS LESS AGGITATED. PT'S BEHAVIOR IMPROVED WHEN BROUGHT TO BATHROOM VERSUS USING THE URINAL. PT WAS ON RA AT THE BEGINNING OF THE SHIFT, BUT PT WAS PLACED ON 4L THIS AFTERNOON AND IS STILL ON 4L VIA NC. PT IS NOT REDIRECTABLE AND CAN BE SLIGHTLY AGGRESSIVE. PT DENIED ANY PAIN THIS SHIFT.
--- NOTE | 2025-04-05 20:25 | NUR ---
PATIENT OUT OF BED X TWO ACTIVATING BED ALARM. NOT ABLE TO FOLLOW DIRECTIONS AT THIS TIME. HX DEMENTIA. BACK IN BED. BORIS.
--- NOTE | 2025-04-05 23:35 | NUR ---
PATIENT CONFUSED OUT OF BED AND BED ALARMED. HALLUCINATING SEEING HIS DOG NAMED BEAR ON THE SHELF IN THE ROOM. PATIENT PULLED GOWN OFF AND PUT BED SHEET AROUND HIMSELF. TELE STICKERS REPLACED AND BATTERIES. BACK IN BED. BORIS.
[2025-04-06 00:37] VITALS: BP 132/74
--- NOTE | 2025-04-06 04:01 | NUR ---
SHIFT SUMMARY PATIENT HAD NO ACUTE CHANGES. ALERT TO SELF WITH CONFUSION. SBA IN ROOM AND NOT FOLLOWING DIRECTIONS AT THIS TIME. MULTIPLE OUT OF BED ACTIVATING BED ALARM. DENIES CHEST PAIN, SOB, AND N/V. VSS/AFEBRILE. ON 4L O2 NC AND PULLS OFF AT TIMES. RT IN FOR BREATHING TX. UP MOST OF THE NIGHT AND TRAZODONE 25 MG GIVEN PER EMAR FOR INSOMNIA. CALL LIGHT IN REACH. BED IN LOWEST POSITION AND ALARM ON. WILL CONTINUE TO MONITOR UNTIL DAY SHIFT NURSE ASSUMES CARE.
[2025-04-06 04:36] VITALS: BP 114/68
[2025-04-06 05:30] LABS: Anion Gap 12.0 mmol/L (3-11); Blood Urea Nitrogen 39.0 mg/dL (8-24); CO2, Blood 30.0 mmol/L (21-32); Calcium, Blood 9.6 mg/dL (8.5-10.1); Chloride, Blood 100.0 mmol/L (98-108); Creatinine, Blood 1.37 mg/dL (0.60-1.20); Glucose, Blood 111.0 mg/dL (70-99); Potassium, Blood 3.7 mmol/L (3.5-5.5); Sodium, Blood 138.0 mmol/L (136-145)
[2025-04-06 08:08] VITALS: BP 120/64
--- NOTE | 2025-04-06 09:37 | NUR ---
Pt up in room, alert, confused, doesn't know where he is or what he's doing, pulled tele and gown off, very busy, ambulated into the bathroom, took po meds slowly, with lots of direction, asked him to get back into bed multiple times, he says ok and continues rummaging through his clothing, lungs are very dim t/o, sats are 99% on r/a, no cough noted, hrr, distant sounds, did have sig edema in b/l le, but is down to +1, cap refill<3 sec, vs stable, afebrile, pulled iv out early this am, btx4, abd flat soft nontender, voids via pull ups, skin c/w/d, red b/l tammy, kenyon nivees, call light in reach.
[2025-04-06 11:54] VITALS: BP 117/72
--- NOTE | 2025-04-06 14:25 | NUR ---
pt has been standing up and taking things off continuously, redirects for about five minutes. is cooperative, call light in reach.
--- NOTE | 2025-04-06 16:21 | NUR ---
will be moving pt to scu when bed available. pt does not eat unless someone assist him. call light in reach.
[2025-04-06 16:51] VITALS: BP 132/78
--- NOTE | 2025-04-06 17:49 | NUR ---
pt continually gets up and comes out in caballero, nearly went into another pt room, is easily redirected, no acute changes this shift. call light in reach.
--- NOTE | 2025-04-06 18:21 | NUR ---
TRANSFER NOTE PATIENT TRANSFERED TO ROOM 352 FROM [facility] THIS EVENING AT 1820. PATIENT ALERT, ELOPEMENT RISK, CONFUSED. UNABLE TO FOLLOW SIMPLE DIRECTIONS. PLEASANT WITH STAFF. REPORT RECIEVED FROM ELDER. NO OTHER CONCERNS AT THIS TIME, WILL CONTINUE TO MONITOR.
[2025-04-06 19:19] VITALS: BP 122/77
--- NOTE | 2025-04-06 19:39 | NUR ---
NEW TELEPHONE ORDERS RECEIVED FROM THE ON-CALL HOSPITALIST ROBB: - D/C TRAZADONE QHS PRN AND -NEW ORDER FOR QUETAPINE 25-50MG QHS PRN. ENTERED TO [employer], SEE EMAR.
--- NOTE | 2025-04-07 03:04 | NUR ---
SHIFT SUMMARY 1:1 SITTER AT DIRECT OBSERVATION. HS SEROQUEL 50MG ADMINISTERED ORDERED. AT SHIFT CHANGE PT WALKING WEARING THE HOSPITAL GOWN A CAPE, AND WEARING ATTENDS. ATTEMPTING TO WALK ON THE HALLWAYS. PT HAS ONE WORD SENTENCES, THAT DON'T MAKE SENSE. PT IS UNABLE TO FOLLOW SIMPLE DIRECTIONS. PT THEN SOON AFTER SETTLED FOR BED. PT RESTING T/O THE NIGHT HRS W/O ANY ACUTE DISTRESS. VSS. ON RA, O2 SAT'S>90%. NO COUGH NOTED. NO SIGNS OF PAIN PER FACE SCALE. BED AT THE LOWEST POSITION, CALL LIGHT W/I REACH. PT IS ALERT, NOT ORIENTED. WAS WONDERING IN THE HOSPITAL ROOM AT THE BEGINNING OF THIS SHIFT. FALL RISK.
[2025-04-07 05:10] VITALS: BP 145/80
[2025-04-07 07:32] VITALS: BP 137/72
--- NOTE | 2025-04-07 10:27 | NUR ---
PER DR ANGELES, ANUSHA GIVE ALL HEART PILLS. CHANGE METOPROLOL TO 12.5 MG NOW. RECHECK H/R IS 68-72
[2025-04-07 10:34] LABS: Anion Gap 8.0 mmol/L (3-11); Blood Urea Nitrogen 37.0 mg/dL (8-24); CO2, Blood 34.0 mmol/L (21-32); Calcium, Blood 10.7 mg/dL (8.5-10.1); Chloride, Blood 96.0 mmol/L (98-108); Creatinine, Blood 1.13 mg/dL (0.60-1.20); Glucose, Blood 93.0 mg/dL (70-99); Potassium, Blood 3.2 mmol/L (3.5-5.5); Sodium, Blood 135.0 mmol/L (136-145)
[2025-04-07 14:58] VITALS: BP 103/68
[2025-04-07 16:45] VITALS: BP 121/70
--- NOTE | 2025-04-07 17:50 | NUR ---
PT DOING SOME BETTER TODAY. SOME MORE TALKATIVE. A/O X1-2 NOW. AMBULATES TO BATHROOM 1 ASST. DID GET MORE ANXIOUS THIS AFT. CALLED DR ANGELES FOR MEDS. PT STATES FEELING SOME BETTER. NO FURTHER CONCERNS NOTED. BED IN LOW POSITION, CALL LITE IN REACH, SITTER AT BEDSIDE FOR HIGH FALL RISK.
[2025-04-07 19:02] VITALS: BP 103/70
--- NOTE | 2025-04-08 01:05 | NUR ---
@0100 THIS TECHNICAL BUSINESS SYSTEMS ANALYST SPOKE ON THE PHONE WITH THE ON-CALL HOSPITALIST R/T PT ANXIOUS AND ASKING FOR A CIGARETTES AND TO GO SMOKE. PT IS PACING IN THE ROOM, ORIENTED X0 AT THIS TIME. 1:[address] CHARGE NURSE WAS NOTIFIED.
--- NOTE | 2025-04-08 03:25 | NUR ---
SHIFT SUMMARY PT CONTINUES ON DROPLET ISO D/T DX OF RHINO VIRUS. PT ALSO HAS SITTER, 1:1 CLOSE OBSERVATION. PT AWAKE, UP PACING T/O THE NIGHT. PT EXIT SEEKING. A/O X0. UNABLE TO REORIENT THE PT. PT ABLE TO VOID STANDING BY THE TOILET. PT RUBBING HIS FINGERS ON THE HOSPITAL GOWN. PT NOT SETTLING TO SIT DOWN IN THE CHAIR NOR THE HOSPITAL BED. IF REDIRECTED PT PUSHES THE STAFF AWAY FROM THE CLOSE OBSERVATION. PT ATTEMPTING TO PULL ON THE O2 TUBING ON THE WALL. MEDICATED PER EMAR. ONE-TIME ORDER OF ATIVAN 1MG PO NOT EFFECTIVE. ON-CALL HOSPITALIST WAS NOTIFIED. PT REQUESTING TO GO TO HAVE A CIGARETTE. THIS [facility] LAB TECHNICIAN REQUESTED NICOTINE PATCH AND GUM FROM THE HOSPITALIST. BED AT THE LOWEST POSITION. 1:1 SITTER IN THE ROOM WITH THE PT. (CLINICAL SITTER). CHARGE NURSE NOTIFIED.
--- NOTE | 2025-04-08 04:45 | NUR ---
@0582 INITIATED ALLISON, PER CHARGE NURSE SALOME.
[2025-04-08 07:11] VITALS: BP 134/88
--- NOTE | 2025-04-08 17:16 | NUR ---
SHIFT SUMMARY PT IS A/O TO SELF. IMPULSIVE. 1:[address] NO ACUTE CHANGES THROUGHOUT THIS SHIFT. ON RA, SATS >90%. UP WITH 1 PERSON ASSIST.
[2025-04-08 18:29] LABS: Anion Gap 8.0 mmol/L (3-11); Blood Urea Nitrogen 36.0 mg/dL (8-24); CO2, Blood 29.0 mmol/L (21-32); Calcium, Blood 11.0 mg/dL (8.5-10.1); Chloride, Blood 102.0 mmol/L (98-108); Creatinine, Blood 1.14 mg/dL (0.60-1.20); Glucose, Blood 116.0 mg/dL (70-99); Potassium, Blood 4.0 mmol/L (3.5-5.5); Sodium, Blood 135.0 mmol/L (136-145)
[2025-04-08 19:11] VITALS: BP 98/70
--- NOTE | 2025-04-09 02:38 | NUR ---
SHIFT SUMMARY NO ACUTE EVENTS DURING THIS SHIFT. PT CONTINUES ON DROPLET ISO D/T RHINOVIRUS. PT CONTINUES IN ALLISON D/T UNSAFE BEHAVIORS, DX DEMENTIA. PT CONTINUES TO HAVE 1:1 NON-CLINICAL SITTER FOR SAFETY. PT AWAKE MOST OF THIS SHIFT, SHUFFLING IN BED, INCONTINENT OF URINE. MOSTLY COOPERATIVE WITH CARE, DOES RAISE HIS ARMS OR ATTEMPT TO KICK THE STAFF WHILE GIVING CARE. AIRWAY PATENT, CIRCULATION CHECKED PER PROTOCOL. PRN ZYPREXA ADMINISTERED, NOT EFFECTIVE. PT IMPULSIVE AT TIMES. PT REFUSES NASAL CANNULA, ON RA. SNACKS AND FLUIDS OFFERED, PT ATE 100% OATMEAL SNACK. MEDS WHOLE WITH H20. BED AT THE LOWEST POSITION, CALL LIGHT W/I REACH. RAILS UP, BED LOCKED. CONTINUING TO KEEP THE PT ON ALLISON FOR SAFETY, WILL EVAL Q2HRS PER PROTOCOLS.
[2025-04-09 04:04] VITALS: BP 146/89
--- NOTE | 2025-04-09 04:09 | NUR ---
pt is satting in 80% at ra. pt refuses to keep the nasal cannula on. pt pulling on cords, lines, clothes and lupe. Charge nurse Mick notified.
[2025-04-09 07:44] VITALS: BP 148/81
[2025-04-09 15:18] VITALS: BP 123/87
--- NOTE | 2025-04-09 19:24 | NUR ---
SHIFT SUMMARY PT IS A/O TO SELF. IMPULSIVE, EASILY REDIRECTABLE. PT SLEEPING FOR MUCH OF THE DAY. ON 4-5L NC, SATS >95%. UP WITH 1 PERSON ASSIST WITH GAIT BELT. PT HAS LITTLE APPETITE OR ORAL INTAKE. PT IS CONT/INCONT OF BLADDER. MEDS TAKEN WHOLE IN PUDDING OR APPLESAUCE.
[2025-04-09 20:35] VITALS: BP 109/79
[2025-04-10 02:33] VITALS: BP 136/84
--- NOTE | 2025-04-10 04:32 | NUR ---
SHIFT SUMMARY: PT AOX1-0 IMPULSIVE, BUT REDIRECTABLE. CON/ INCONT, SOMETIMES ABLE TO USE URINAL WITH ASSISTANCE, SOMETIMES SOAKING THE BED REQ BED CHANGE. PT COOPERATIVE IN CARE, ALTHOUGH IS IMPULISIVE, TRYING TO GET UP CONSTANTLY. ALLISON VEST IN PLACE. PT REGULARLY REMOVES O2. IS ABLE TO TAKE MEDS PO WITH A LOT OF CONVINCING AND REMINDING OF WHAT IS HAPPENING. IS A 1PA BUT IS VERY WEAK AND UNSTEADY ON FEET. NO ACUTE OVERNIGHT EVENTS. PT IN BED RESTING, BED IN LOWEST POSITION, CALL LIGHT IN REACH. CONTINUING CARE.
[2025-04-10 07:58] VITALS: BP 151/98
[2025-04-10] MEDS ORDERED: Ipratropium/Albuterol SulF 2.5-0.5MG/3 ML Amp INH PRN (08:55)
[2025-04-10 12:07] LABS: Anion Gap 4.0 mmol/L (3-11); Blood Urea Nitrogen 40.0 mg/dL (8-24); CO2, Blood 31.0 mmol/L (21-32); Calcium, Blood 12.1 mg/dL (8.5-10.1); Chloride, Blood 100.0 mmol/L (98-108); Creatinine, Blood 1.22 mg/dL (0.60-1.20); Glucose, Blood 125.0 mg/dL (70-99); Potassium, Blood 4.4 mmol/L (3.5-5.5); Sodium, Blood 131.0 mmol/L (136-145)
[2025-04-10 15:25] VITALS: BP 105/84
[2025-04-10 19:15] VITALS: BP 128/79
--- NOTE | 2025-04-10 19:51 | NUR ---
SHIFT SUMMARY: NO NEW OR ACUTE CHANGES DURING THIS SHIFT. PLAN FOR PRISON PLACEMENT. PLAN OF CARE ONGOING AT THIS TIME, WILL CONTINUE TO MONITOR.
[2025-04-11 02:45] VITALS: BP 143/85
--- NOTE | 2025-04-11 05:11 | NUR ---
SHIFT SUMMARY A&OX1-2 TO SELF AND TOWN. CONFUSED AND FORGETFUL. TALK IS OFTEN NOT RELEVANT TO CONVERSATION. AGITATED OFF AND ON THROUGHOUT SHIFT. PT WAS IN SOFT RESTRAINTS AT START OF SHIFT BUT WAS ABLE TO GET OUT OF THESE X 2. PT THEN PUT IN TUFF CUFFS DUE TO FALL RISK, AGITATION AND INABILITY TO MAKE NEEDS KNOWN APPROPRIATELY. PT REFUSED MUCINEX. ZYPREXA GIVEN FOR AGITATION. PT ONLY TOOK SMALL BITES OF PUDDING AND A FEW SIPS OF WATER OTHERWISE REFUSES FOOD AND DRINK. CONTINUES TO BE ON O2 VIA NC AT 4 LPM. RESTING COMFORTABLY IN BED AT LOWEST POSITION WITH RAILS X 2 AND CALL LIGHT WITHIN REACH.
[2025-04-11 08:03] VITALS: BP 127/91
--- NOTE | 2025-04-11 11:06 | NUR ---
RETURNED CALL TO KEN LEAD NURSE AT [facility] FOR UPDATE ON PATIENT. KEN CONCERNED ABOUT METHADONE DOSING FOR PATIENT. STATING PATIENT GETS AGITATED IF NOT ON MEDICATION.
[2025-04-11] MEDS ORDERED: Methadose10 MG/1 ML PO (13:28)
[2025-04-11 15:18] VITALS: BP 126/92
--- NOTE | 2025-04-11 16:02 | NUR ---
Patient is lying in bed and resting. He easily awakens to the sound of his name. He talks quietly and appears withdrawn. He tells me that he is having a "rough time," but does not speak to ellaborate on the topic. After introductions he spaeks only with yes and no answers but only when he wants answer. He does verbally and with a head nod agree to have a prayer said for him. I gladly supply prayer. I sit with him for some time providing a calming presence. I will continue to remain available to patient and family.
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
[2025-04-11 19:02] VITALS: BP 112/85
[2025-04-12 04:44] VITALS: BP 98/67
--- NOTE | 2025-04-12 05:28 | NUR ---
SHIFT SUMMARY A&O X1 TO SELF ONLY. CONFUSED AND TALK IS NON-SENSICAL TO CONVERSATION. PT HAD AN INCONTINENT EPISODE AND WAS NOT ABLE TO UNDERSTAND HOW TO USE THE URINAL. HE CONTINUES TO REMOVE HIS O2 DUE TO AGITATION BUT THIS IS ABLE TO BE REAPPLIED LATER WHEN PT IS OFFERED. PT GIVEN MEDS IN PUDDING BUT PT SPIT 3 OF 4 MEDS OUT AT A LATER TIME HE APPEARED TO HAVE POCKETED THEM. PT HAS BEEN ABLE TO REST COMFORTABLY IN HIS BED BUT HAS BEEN VERY DIFFICULT TO REPOSITION. MULTIPLE ATTEMPTS TRIED BUT PT BECAME FRUSTRATED. PT CURRENTLY RESTING IN HIS BED AT LOWEST POSITION, RAILS X2 AND CALL LIGHT WITHIN REACH. SITTER PRESENT AND MONITORING PT FOR SAFETY.
[2025-04-12 08:07] VITALS: BP 100/73
[2025-04-12 14:55] LABS: Anion Gap 7.0 mmol/L (3-11); Blood Urea Nitrogen 65.0 mg/dL (8-24); CO2, Blood 34.0 mmol/L (21-32); Calcium, Blood 9.9 mg/dL (8.5-10.1); Chloride, Blood 98.0 mmol/L (98-108); Creatinine, Blood 1.87 mg/dL (0.60-1.20); Glucose, Blood 88.0 mg/dL (70-99); Potassium, Blood 3.6 mmol/L (3.5-5.5); Sodium, Blood 135.0 mmol/L (136-145)
--- NOTE | 2025-04-12 15:31 | NUR ---
RETURNED A CALL FROM ELMIRA AT [facility]. SHE RELAYED INFORMATION ABOUT THE PATIENTS CHANGES OVER THE LAST FEW YEARS. PATIENT IS LAYING IN BED. ASKED HOW HE WAS DOING TODAY AND HE RELAYED THAT HE WAS DOING BETTER THAN YESTERDAY. PATIENTS LEGS AND FEET ARE MOTTELING. PATIENT IS PENDING GUARDINSHIP AND PLACMENT. DISCUSSED WITH RADIOLOGY PHYSICIAN.
--- NOTE | 2025-04-12 17:52 | NUR ---
PATIENT CONTINUES TO SLEEP MOST OF SHIFT. UNABLE TO AROUSE TO TAKE MEDICATIONS. MD ROUNDED AND EVALUATION BY REGIONAL PROGRAM MANAGER ORDERED. IV SUPPLEMENTS BEING ADMINISTERED AT THIS TIME. PATIENT TOLERATING WELL. PATIENTWAS ABLE TO EAT 2 BITES OF DINNER WITH ASSISTANCE. CALL LIGHT WITHIN REACH, SITTER AT DOOR.
[2025-04-12] MEDS ORDERED: Fat Emulsion 20 % IV 250 ML IV SCH (18:00)
[2025-04-12 19:15] VITALS: BP 107/91
[2025-04-13 03:37] VITALS: BP 111/97
--- NOTE | 2025-04-13 04:57 | NUR ---
SHIFT SUMMARY NOC PT A/O X SELF. LETHARGIC AND SLEPT MAJORITY OF SHIFT. VSS. PT REFUSED BEDTIME MEDS. HAS CLINIMIX INFUSING @ 100 ML/HR. PT VERY CACHECTIC IN APPEARANCE AND WITH NO PO INTAKE DURING SHIFT. PT HAS POWERGLIDE IN CATHERINE. PT CURRENTLY AWAITING GUARDIANSHIP [facility]LL LTC AUTHORIZATION/PLACEMENT. PT CURRENTLY RESTING WITH SITTER IN PLACE, BED IN LOWEST POSITION, AND CALL LIGHT WITHIN REACH.
[2025-04-13 06:24] LABS: Hematocrit 44.7 % (37.0-53.0); Hemoglobin 15.1 g/dL (13.5-17.5); Mean Corpuscular HGB Conc 33.8 g/dL (31.5-36.5); Mean Corpuscular Volume 92 fL (80-100); NRBC ABSOLUTE 0.00 K/mm3 (0.00-0.02); NRBC Auto 0.0 /100 WBC (0.0-0.2); Platelet Count 302 K/mm3 (150-400); RDW Coefficient Variation 12.2 % (11.7-14.2); RDW Standard Deviation 41.3 fL (35.1-46.3)
[2025-04-13 06:41] LABS: Albumin, Blood 3.3 g/dL (3.4-5.0); Anion Gap 6 mmol/L (3-11); Blood Urea Nitrogen 65 mg/dL (8-24); CO2, Blood 34 mmol/L (21-32); Calcium, Blood 10.0 mg/dL (8.5-10.1); Chloride, Blood 97 mmol/L (98-108); Creatinine, Blood 1.45 mg/dL (0.60-1.20); Glucose, Blood 98 mg/dL (70-99); Magnesium, Blood 2.3 mg/dL (1.6-2.4); Phosphorus, Blood 3.0 mg/dL (2.5-4.9); Potassium, Blood 3.3 mmol/L (3.5-5.5); Sodium, Blood 134 mmol/L (136-145); Triglycerides 50 mg/dL (30-160)
--- NOTE | 2025-04-13 11:43 | NUR ---
DR ELI AND DR VINES ROUNDED ON PATIENT
[2025-04-13 16:02] VITALS: BP 115/72
--- NOTE | 2025-04-13 17:55 | NUR ---
POLST SIGNED BY TWO MD IN CHART, DNR/COMFORT CARE, NO COMFORT CARE ORDERS IN [facility], LEFT MESSAGE WITH PALLIATIVE CARE. PATIENT MORE ALERT AND IMPULSIVE THIS AFTERNOON, EASILY REDIRECTED, BED ALARM ON, 1:1 AT BEDSIDE, WILL RELAY TO PM RN
[2025-04-13 18:55] VITALS: BP 108/77
[2025-04-13 20:31] VITALS: BP 97/85
[2025-04-14 03:46] VITALS: BP 111/63
--- NOTE | 2025-04-14 04:47 | NUR ---
SHIFT SUMMARY NOC PT A/O X SELF. LETHARGIC AND SLEPT MAJORITY OF SHIFT. VSS. PT TOOK BEDTIME SEROQUEL, BUT REFUSED OTHER BEDTIME MEDS. HAS LIPID EMULSION INFUSING PER EMAR THROUGH POWERGLIDE IN CATHERINE.. PT VERY CACHECTIC IN APPEARANCE AND WITH SCANT PO FLIUD INTAKE DURING SHIFT. PT CURRENTLY HAS POLST SIGNED BY DR ELISE FOR DNR AND COMFORT CARE STATUS, HOSPITALIST NOTIFIED OF NO DNR ORDER AND ORDER FOR DNR CODE STATUS PLACED NOW AND PALLIATIVE CAN PLACE COMFORT CARE ORDERS WHEN THEY COME TO SEE PATIENT TODAY. PT CURRENTLY RESTING WITH SITTER IN PLACE, BED IN LOWEST POSITION, AND CALL LIGHT WITHIN REACH.
[2025-04-14 07:12] VITALS: BP 103/83
[2025-04-14 15:32] VITALS: BP 107/82
--- NOTE | 2025-04-14 18:58 | NUR ---
ASSUMED CARE OF PT PT IS A/O X 1-2 VERY DIFFICULT TO ASSESS, PT MUMBLES AND DIFFICULT TO UNDERSTAND. [employer] UNDERWAY POSSIBLE TRANSFER TO FACILITY ON THURSDAY. AWAITING PALATIVE CARE WITH SISTER TO ASSESS FUTURE PLAN OF CARE FOR PT. PT CONTINUOUSLY ATTEMPTING TO EXIT BED, SITTER AT BED SIDE TO ASSIST. PO MEDICATIONS WERE REFUSED TODAY EXCEPT FOR METHADONE THAT WAS PULLED OUT OF MEDS AND TAKEN BY PT, SO PT IS A LITTLE AWARE. SISTER AT BEDSIDE WITH PALATIVE CARE NURSE DISCUSSING PLANS.
--- NOTE | 2025-04-14 19:19 | NUR ---
PALLIATIVE CARE VISIT: SPOKE TO KENNETH HALL ON THE PHONE TODAY TO SET UP TIME TO VISIT AND DISCUSS CONCERNS WITH PT AND CARE NEEDS FOR TRANSITION TO FACILITY. YONNY HAD ALREADY SPOKE TO GUARDIAN [place] GERMAN AND SHE IS AGREEABLE TO [place] BEING GUARDIAN OVER HER UNCLE AND PLANS TO WORK WITH HER TO MAKE A POC. Yonny CAME IN THIS EVENING AND WE DISCUSSED TRANSITION TO [facility] ON THURSDAY AND WHAT MAY NEED TO OCCUR FOR SMOOTH TRANSITION. WILL DISCUSS WITH MD TOMORROW ABOUT TAPERING METHADONE AND STARTING DIFFERENT PLAN FOR PAIN MANAGEMENT. ALSO DISCUSSED PALLIATIVE VS HOSPICE SERVICES. YONNY WOULD LIKE PALLIATIVE SERVICES. WILL DISCUSS WITH [place] TOMORROW MORNING [place] IS OUT OF STATE AT THIS TIME.
[2025-04-14 19:27] VITALS: BP 94/62
[2025-04-15 03:09] VITALS: BP 104/71
--- NOTE | 2025-04-15 04:14 | NUR ---
pt a&o xunknown as will not answer all questions. pt refused vs and meds this shift. iv lipids ran throughout night. slept well. 1:1 sitter at bedside. took some h2o, but no solid foods. pt denies pain. plan to d/c to [facility].
--- NOTE | 2025-04-15 07:13 | NUR ---
assumed care. I ENTERED ROOM AND PT WAS CRYING OUT AND MOANING, I TRIED TO CONSOLE AND WAS UNSUCCESSFUL. WHEN PT WAS ASKED IF HE HAD PAIN, PT STATED THAT HE DIDNT HAVE ANY PAIN. I TRIED TO REPOSITION BUT PT YELLED OUT EVEN MORE, PT IS UNABLE TO EXPLAIN WHAT IS GOING ON, VSS, PT TO BE MEDICATED PER MAR.
[2025-04-15 07:27] VITALS: BP 102/64
[2025-04-15 08:39] LABS: Anion Gap 6.0 mmol/L (3-11); Blood Urea Nitrogen 43.0 mg/dL (8-24); CO2, Blood 28.0 mmol/L (21-32); Calcium, Blood 9.2 mg/dL (8.5-10.1); Chloride, Blood 102.0 mmol/L (98-108); Creatinine, Blood 1.14 mg/dL (0.60-1.20); Glucose, Blood 99.0 mg/dL (70-99); Potassium, Blood 3.9 mmol/L (3.5-5.5); Sodium, Blood 132.0 mmol/L (136-145)
--- NOTE | 2025-04-15 10:41 | NUR ---
PALLIATIVE CARE VISIT: SPOKE TO GUARDIVITALIY GERMAN (#[phone]) ON THE PHONE TODAY. PER [place] SHE WOULD PREFER PT CONTINUE TO TAKE METHADONE AT CURRENT DOSE OF 30 MG DAILY FOR REASONS SHE STATES HE HAS BEEN TAKING FOR SEVERAL YEARS AND HAS BEEN STABLE ON THIS MEDICATION. HER RESEARCH INTO HIS PAST REVEALED HE WAS ON MUCH HIGHER DOSE AT ONE TIME OF 150 MG PO DAILY. SHE WILL WORK WITH [facility] TO MONITOR AND MAKE RECOMMENDATIONS IN THE OUT PATIENT SETTING. ALSO GOT CLARIFICATION IF SHE WOULD WANT TO CONTINUE IV NUTRITION UNTIL DISCHARGE SINCE PT IS ONLY TAKING IN BITES OF HIS MEALS. SHE WOULD LIKE TO CONTINUE IV NUTRITION. SHE IS ALSO AGREEABLE TO SEEING IF PT IS WILLING TO TAKE A MEDICATION FOR HEARTBURN TO SEE IF HE WILL TOLERATE FOOD BETTER AND SHE IS. SPOKE TO PT IN HIS ROOM. PT IS AWAKE AND ABLE TO COMMUNICATE AND SPEAK IN FULL SENTENCES. SOME WORDS ARE MUMBLED BUT FOR THE MOST PART HIS SPEECH IS DISCERNABLE. DISCUSSED WHY HE DOESN'T EAT WELL AND HE STATED "MY STOMACH FEELS LIKE A BBQ AFTER I EAT". WHEN ASKED IF IT IS HEARTBURN HE NODDED HIS HEAD YES. PT IS AGREEABLE TO TAKING MAALOX. WILL AVOID PILLS SINCE HE REFUSES ALL PILLS ACCEPT HIS METHADONE. SPOKE TO DR. VINES. ORDERS GIVEN TO START MAALOX BEFORE MEALS, PT/OT RAJ. ORDERS PLACED. UPDATED [place] GERMAN ON POC. SHE IS AGREEABLE.
[2025-04-15 15:31] VITALS: BP 100/83
--- NOTE | 2025-04-15 15:56 | NUR ---
ASSUMED CARE OF PT. PT MORE ALERT AND RESPONSIVE TODAY, PT STILL CANT MAKE NEEDS KNOWN AND IS OFTEN TRYING TO GET OUT OF BED OR OUT OF CHAIR,. SITTER AT BEDSIDE TO ASSIST WITH CARE. PT REFUSED MEDICATION TODAY EXCEPT FOR METHADONE. PHYSICAL THERAPY WORKED WITH PT TODAY AND ASSISTED TO CHAIR ALSO WALKING IN CHEN. PT NEEDED MINIMAL ASSISTENCE AND EASILY TRANSFERS WITHOUT FWW.
--- NOTE | 2025-04-15 15:59 | NUR ---
SITTER WAS TAKE FROM ROOM SO BED ALARM AND CHAIR ALARM ARE ARMED. PT CONTINUALLY TRYING TO GET OUT OF BED. DR VINES HAS BEEN NOTIFIED AND INCREASED ORAL MEDICATION. PT MEDICATED PER MAR. PT IS OFTEN NOT REDIRECTABLE AND NEEDING CONSTANT ENC TO EITHER SIT OR LAY DOWN. BLOOD PRESSURES ARE A LITTLE SOFT SO AMBULATION MUST BE WITH ASSIST.
--- NOTE | 2025-04-15 16:06 | NUR ---
ADDITIONAL 25MG SEROQUEL GIVEN, 50MG CUT IN HALF
[2025-04-15 19:38] VITALS: BP 109/62
[2025-04-16 02:36] VITALS: BP 100/75
--- NOTE | 2025-04-16 03:50 | NUR ---
PT A&O X2, SLEPT WELL UNTIL APPROXIMATELY 0230. VS WNL, UP WITHOUT ASSIST, STILL UNSTABLE , POOR PO INTAKE, REMAINS ON IV LIPIDS, DOES NOT USE CALL SYSTEM APPROPRIATELY, MONITORED THROUGHOUT NIGHT. PLAN TO D/C TO HOSPICE.
[2025-04-16 08:57] VITALS: BP 123/81
--- NOTE | 2025-04-16 10:17 | NUR ---
ASSUMED CARE PT SLEEPING WHEN I ENTERED ROOM EASILY AROUSABLE BUT FALLS BACK ASLEEP. VSS, PT RESPONDED APPROPRIATLY SAID HE DIDNT WANT TO EAT, I WILL ENC FLUIDS THROUGHOUT THE DAY. PT STATED HE ONLY WANTED THE WHITE PILLS REFERING TO HIS METHADONE. ONCE I BROUGHT MEDS IN PT WAS ASLEEP SO WILL HOLD UNTIL PT IS AWAKE AND ALERT.
[2025-04-16] MEDS ORDERED: NS 500 ML IV SCH (11:00)
[2025-04-16 16:47] VITALS: BP 106/88
--- NOTE | 2025-04-16 18:45 | NUR ---
PT AWAKE AND ALERT AND COOPERATIVE WITH CARE, STILL DIFFICULT TO UNDERSTAND BUT HAS BEEN APPROPRIATE. PT DID ATTEMPT TO EAT LUNCH HAD SEVERAL BITES OF FOOD ANBOUT 15% IV BOLUS INFUSING FOR EXTRA HYDRATION.
[2025-04-16 20:55] VITALS: BP 103/75
--- NOTE | 2025-04-17 04:31 | NUR ---
SHIFT SUMMARY: PT AOX1 TO SELF ONLY. PT MUMBLES WORD SALAD. FOLLOWS COMMANDS AT TIMES, VERY FORGETFUL AND NEEDS ENCOURAGEMENT. IS A 1PA, BUT VERY FRAIL AND UNSTEADY GAIT. PT IN VERY IMPULSIVE, BED ALARM IN PLACE. CONTINUES TO ATTEMPT TO GET UP OR GO GET A CIGARETTE REGULARLY. SLEPT A LITTLE BIT. TOLERATING MEDICATIONS WELL, BUT REFUSING A LOT OF THEM AND NEEDING ENCOURAGEMENT TO TAKE ANY. PT SITTING IN BED, BED IN LOWEST POSITION, CALL LIGHT IN REACH, BED ALARM IN PLACE. CONTINUING CARE.
[2025-04-17 05:13] VITALS: BP 92/72
[2025-04-17 07:08] VITALS: BP 100/70
[2025-04-17 11:53] LABS: Hematocrit 43.3 % (37.0-53.0); Hemoglobin 14.9 g/dL (13.5-17.5); Mean Corpuscular HGB Conc 34.4 g/dL (31.5-36.5); Mean Corpuscular Volume 90 fL (80-100); NRBC ABSOLUTE 0.00 K/mm3 (0.00-0.02); NRBC Auto 0.0 /100 WBC (0.0-0.2); Platelet Count 254 K/mm3 (150-400); RDW Coefficient Variation 11.9 % (11.7-14.2); RDW Standard Deviation 39.2 fL (35.1-46.3)
[2025-04-17 12:19] LABS: Magnesium, Blood 2.2 mg/dL (1.6-2.4)
[2025-04-17 12:20] LABS: Albumin, Blood 3.4 g/dL (3.4-5.0); Anion Gap 8 mmol/L (3-11); Blood Urea Nitrogen 33 mg/dL (8-24); CO2, Blood 29 mmol/L (21-32); Calcium, Blood 9.0 mg/dL (8.5-10.1); Chloride, Blood 99 mmol/L (98-108); Creatinine, Blood 1.26 mg/dL (0.60-1.20); Glucose, Blood 92 mg/dL (70-99); Phosphorus, Blood 2.2 mg/dL (2.5-4.9); Potassium, Blood 3.6 mmol/L (3.5-5.5); Sodium, Blood 132 mmol/L (136-145)
[2025-04-17] MEDS ORDERED: ACET325 PO (14:49)
[2025-04-17] MEDS ORDERED: METH10 PO (14:49)
[2025-04-17 16:50] VITALS: BP 89/75
--- NOTE | 2025-04-17 18:48 | NUR ---
SHIFT SUMMARY PT CONT LEVEL OF CARE WITH NO ACUTE CHANGES NOTED. PT NOTED TO BE A&O X4 AND STAND BY ASSIST WITH AMBULATION. PT CONT TO HAVE POOR PO INTAKE. PT NOTED TO BE EXTREMELY IMPULSIVE THIS SHIFT REQUIRING REDIRECTION/EDUCATION WITH LITTLE EFFECTIVENESS. PT WAS ASSISTED IN WALKING AROUND THE UNIT THIS SHIFT BY THIS NURSE. PLAN IS TO DC TOMORROW TO [facility].
[2025-04-18 02:56] VITALS: BP 87/62
--- NOTE | 2025-04-18 04:37 | NUR ---
SHIFT SUMMARY: PT AOX1 SBA/ 1PA TO AMBULATE TO BATHROOM. HAS PREFERRED TO SLEEP IN THE CHAIR THIS EVENING. IMPULSIVE AT TIMES BUT SLEEPING MUCH MORE THAN THE NIGHT BEFORE. CHAIR ALARM IN PLACE. PT DOES NOT CALL APPROPRIATELY, ABLE TO MAKE NEEDS KNOWN AT TIMES. REFUSED MOST MEDICATIONS THIS EVENING BUT WAS OKAY TAKING THE SEROQUEL AFTER MUCH ENCOURAGEMENT. STILL NOT EATING MUCH BUT TOLERATING IV NUTRITION WELL. NO ACUTE OVERNIGHT EVENTS. PT IN CHAIR SLEEPING, CHAIR ALARM IN PLACE, CALL LIGHT IN REACH. CONTINUING CARE.
[2025-04-18 07:43] VITALS: BP 122/70
== END 2025-04-18 16:18 | disposition home or self-care (01) | DRG 56 ==
LOC: ER 07:21 → MEDS 11:47
PROVIDERS: Internal Medicine; Student in an Organized Health Care Education/Training Program; ADMIT Internal Medicine
DX: G30.9 Alzheimer's disease, unspecified (principal); G93.41 Metabolic encephalopathy; J96.01 Acute respiratory failure with hypoxia; I21.A1 Myocardial infarction type 2; J96.02 Acute respiratory failure with hypercapnia; J44.1 Chronic obstructive pulmonary disease with (acute) exacerbation; R64 Cachexia; E87.29 Other acidosis; F02.818 Dementia in other diseases classified elsewhere, unspecified severity, with other behavioral disturbance; F01.518 Vascular dementia, unspecified severity, with other behavioral disturbance; Z68.1 Body mass index [BMI] 19.9 or less, adult; Z66 Do not resuscitate; Z51.5 Encounter for palliative care; G89.29 Other chronic pain; M54.50 Low back pain, unspecified; F17.210 Nicotine dependence, cigarettes, uncomplicated; I10 Essential (primary) hypertension; K21.9 Gastro-esophageal reflux disease without esophagitis; D50.9 Iron deficiency anemia, unspecified; E78.5 Hyperlipidemia, unspecified; I87.8 Other specified disorders of veins; R62.7 Adult failure to thrive; B97.89 Other viral agents as the cause of diseases classified elsewhere; Z98.890 Other specified postprocedural states; Z86.73 Personal history of transient ischemic attack (TIA), and cerebral infarction without residual deficits; Z87.440 Personal history of urinary (tract) infections; Z86.19 Personal history of other infectious and parasitic diseases; Z79.899 Other long term (current) drug therapy
CPT/HCPCS: 0202U; 36415; 71046; 80048; 80053; 80069; 81003; 82140; 82803; 83735; 83880; 84436; 84478; 84484; 85025; 85027; 87637; 93005; 93010; 94640; 94760; 96365; 96372; 96374; 96375; 96376; 97129; 97161; 97165; 97168; 97530; 97535; 99285-25; A9270; G0378; J0696; J1650; J1938; J2919; J7040; J7512

== ENCOUNTER 2025-05-06 22:08 | Inpatient (IN) | payer OTHER ==
[~2025-05-06] VITALS: Ht 172.7 cm; Wt 61.2 kg
[~2025-05-06 22:08] MED LIST changes: +Methadose10 MG/1 ML PO
[2025-05-06] MEDS ORDERED: NS 1,000 ML IV SCH (23:15)
[2025-05-07 00:29] LABS: Alanine Aminotransfer (ALT/SGP 25.0 U/L (12-78); Albumin, Blood 2.9 g/dL (3.4-5.0); Albumin/Globulin Ratio 1.0 (0.8-1.8); Anion Gap 8.0 mmol/L (3-11); Aspartate Aminotrans (AST/SGOT 38.0 U/L (12-37); Bilirubin, Total 0.2 mg/dL (0.1-1.0); Blood Urea Nitrogen 29.0 mg/dL (8-24); CO2, Blood 28.0 mmol/L (21-32); Calcium, Blood 8.9 mg/dL (8.5-10.1); Chloride, Blood 108.0 mmol/L (98-108); Creatinine, Blood 1.2 mg/dL (0.60-1.20); Globulin, Blood 3.0 g/dL (2.2-4.0); Glucose, Blood 102.0 mg/dL (70-99); Potassium, Blood 4.9 mmol/L (3.5-5.5); Sodium, Blood 139.0 mmol/L (136-145); Total Protein, Blood 5.9 g/dL (6.4-8.2)
[2025-05-07 00:42] LABS: BASOPHILS ABSOLUTE AUTO 0.03 K/mm3 (0.00-0.23); BASOPHILS PERCENT AUTO 1 % (0-2); EOSINOPHILS ABSOLUTE AUTO 0.21 K/mm3 (0.00-0.68); EOSINOPHILS PERCENT AUTO 4 % (0-6); Hematocrit 34.5 % (37.0-53.0); Hemoglobin 11.3 g/dL (13.5-17.5); IMMATURE GRAN ABSOLUTE AUTO 0.02 K/mm3 (0.00-0.10); IMMATURE GRAN PERCENT AUTO 0 % (0-1); LYMPHOCYTES ABSOLUTE AUTO 0.93 K/mm3 (0.84-5.20); LYMPHOCYTES PERCENT AUTO 16 % (21-46); MONOCYTES ABSOLUTE AUTO 0.64 K/mm3 (0.16-1.47); MONOCYTES PERCENT AUTO 11 % (4-13); Mean Corpuscular HGB Conc 32.8 g/dL (31.5-36.5); Mean Corpuscular Volume 95 fL (80-100); NEUTROPHILS ABSOLUTE AUTO 4.12 K/mm3 (1.96-9.15); NEUTROPHILS PERCENT AUTO 69 % (41-73); NRBC ABSOLUTE 0.00 K/mm3 (0.00-0.02); NRBC Auto 0.0 /100 WBC (0.0-0.2); Platelet Count 231 K/mm3 (150-400); RDW Coefficient Variation 13.0 % (11.7-14.2); RDW Standard Deviation 44.6 fL (35.1-46.3)
[2025-05-07] MEDS ORDERED: Ondansetron HCl 2 MG / ML 2ML Vial IV PRN (00:45)
[2025-05-07] MEDS ORDERED: CeFAZolin Sodium 1,000 MG in NS 50 ML IV SCH (00:52)
--- NOTE | 2025-05-07 02:15 | NUR ---
PATIENT ASKING TO LEAVE AMA. LIVES @ [facility]. LEGAL GUARDIAN, SHANNA HERNANDEZ. PT UNABLE TO MAKE OWN LEGAL DECISIONS AND CANNOT LEAVE AMA. CALL TO PROVIDER FOR MEDS.
--- NOTE | 2025-05-07 03:59 | NUR ---
SHIFT SUMMARY: PT ARRIVED FROM ED EARLY THIS MORNING. PT WAS TRANSFERED ONTO BED WITH HELP OF INDUSTRIAL ENGINEERING DIRECTOR, CODING SPECIALIST HOME HEALTH AND NURSE VIA GURHOA. UPON TRANSFERING PT THE PT STATED THAT IF WE TOUCHED HIM AGAIN HE WOULD KILL US. PT WAS EDUCATED ON NOT TALKING TO STAFF IN THAT MANNER. PT THEN STATED HE WAS GOING TO HIT SOMEONE. PT ONCE AGAIN EDUCATED ON THE APPROPRIATE WAY TO TALK TO STAFF. PT STATED THEY WANTED TO GO HOME. UPON LOOKING IN CHART ITS NOTED THE PT HAS A GAUARDIAN AND CAN NOT MAKE THE CHOICE TO LEAVE AMA. PT LIVES AT [facility] AND THE GAURDIAN IS [place]. DR. CALLAWAY WAS NOTIFIED OF PT WANTING TO LEAVE AMA. THEN ORDERED ZYPREXA. THE PT CALMED DOWN AND IT WAS DECIDED NOT TO GIVE PT THE ZYPREXA. PT REFUSED TO ALLOW VS TO BE TAKEN.
[2025-05-07 05:04] LABS: BASOPHILS ABSOLUTE AUTO 0.03 K/mm3 (0.00-0.23); BASOPHILS PERCENT AUTO 1 % (0-2); EOSINOPHILS ABSOLUTE AUTO 0.22 K/mm3 (0.00-0.68); EOSINOPHILS PERCENT AUTO 4 % (0-6); Hematocrit 28.7 % (37.0-53.0); Hemoglobin 9.4 g/dL (13.5-17.5); IMMATURE GRAN ABSOLUTE AUTO 0.01 K/mm3 (0.00-0.10); IMMATURE GRAN PERCENT AUTO 0 % (0-1); LYMPHOCYTES ABSOLUTE AUTO 0.98 K/mm3 (0.84-5.20); LYMPHOCYTES PERCENT AUTO 20 % (21-46); MONOCYTES ABSOLUTE AUTO 0.66 K/mm3 (0.16-1.47); MONOCYTES PERCENT AUTO 13 % (4-13); Mean Corpuscular HGB Conc 32.8 g/dL (31.5-36.5); Mean Corpuscular Volume 96 fL (80-100); NEUTROPHILS ABSOLUTE AUTO 3.07 K/mm3 (1.96-9.15); NEUTROPHILS PERCENT AUTO 62 % (41-73); NRBC ABSOLUTE 0.00 K/mm3 (0.00-0.02); NRBC Auto 0.0 /100 WBC (0.0-0.2); Platelet Count 204 K/mm3 (150-400); RDW Coefficient Variation 12.8 % (11.7-14.2); RDW Standard Deviation 44.5 fL (35.1-46.3)
[2025-05-07 05:26] LABS: Alanine Aminotransfer (ALT/SGP 20.0 U/L (12-78); Albumin, Blood 2.3 g/dL (3.4-5.0); Albumin/Globulin Ratio 1.0 (0.8-1.8); Anion Gap 6.0 mmol/L (3-11); Aspartate Aminotrans (AST/SGOT 27.0 U/L (12-37); Bilirubin, Total 0.2 mg/dL (0.1-1.0); Blood Urea Nitrogen 26.0 mg/dL (8-24); CO2, Blood 27.0 mmol/L (21-32); Calcium, Blood 8.3 mg/dL (8.5-10.1); Chloride, Blood 111.0 mmol/L (98-108); Creatinine, Blood 1.15 mg/dL (0.60-1.20); Globulin, Blood 2.4 g/dL (2.2-4.0); Glucose, Blood 89.0 mg/dL (70-99); Magnesium, Blood 1.8 mg/dL (1.6-2.4); Potassium, Blood 4.0 mmol/L (3.5-5.5); Sodium, Blood 140.0 mmol/L (136-145); Total Protein, Blood 4.7 g/dL (6.4-8.2)
[2025-05-07 07:54] VITALS: BP 106/65
[2025-05-07] MEDS ORDERED: NS 250 ML IV PRN (08:35)
[2025-05-07] MEDS ORDERED: Lactobacil 2-S.Thermo-Bifido 1 1 Cap PO SCH (09:00)
[2025-05-07] MEDS ORDERED: Enoxaparin 40 MG/0.4 ML SYR SC SCH (09:00)
[2025-05-07 16:11] VITALS: BP 103/55
[2025-05-07] MEDS ORDERED: Albuterol HFA200 ACT/6.7 GM INH INH PRN (18:15)
--- NOTE | 2025-05-07 18:27 | NUR ---
SHIFT SUMMARY PT ORIENTED TO SELF ONLY, ATTEMPTS TO WANDER IN THE CHEN. AT LUNCH TODAY, BREAK NURSE CAME INTO PT ROOM AND FOUND STOOL ON PATIENT TRAY. WE ATTEMPTED TO CLEAN PT AND ROOM BEFORE CALLING ENVIRONMENTAL SERVICES. AT 1800, PT WANDERED INTO THE CHEN AND THIS RN NOTICED THAT HE DID NOT HAVE HIS IV ANYMORE, PT STATED THAT IT WAS BOTHERING HIM. PT BANDAGED AND IV TIP IS INTACT. PT REDIRECTED BACK TO BED. PALLITIVE CARE CONSULT ORDERED. CALL LIGHT IN REACH.
[2025-05-07 21:58] VITALS: BP 114/69
--- NOTE | 2025-05-08 03:21 | NUR ---
SUMMARY: PT A/O TO SELF ONLY BUT WAS FORGETFUL TO PLACE, SITUATION, DATE/TIME, REMINDERS PROVIDED PRN. HE ANSWERS SOME Q'S APPROPRIATELYL AND WAS ABLE TO ENDORSE BASIC NEEDS BUT MOSTLY RESPONDED NONSENSICALLY TO STAFF. PT SEEMED TO COMPREHEND INSTRUCTION BUT IS IMPULSIVE OOB W/ALARM ON FOR FALL RISK AND ATTEMPTS TO WANDER HALLS OR ENTER OTHER PT'S ROOM. NEW IV WAS PLACED VIA US THIS SHIFT W/ABX RECEIVED PER EMAR. HE ALSO WAS GIVEN SEROQUEL AT HS FOR SLEEP AND RESTLESSNESS AND WAS PROVIDED OXYCODONE W/TYLENOL FOR TOLERABLE RELIEF OF "LEG AND GENERAL" PAIN. BLE'S REMAIN RED, SWOLLEN, PEELING AND SLIGHTLY WEEPING IN AREAS AND PT WAS ENCOURAGED TO ELEVATE LEGS IN BED. NO ACUTE CHANGES, VSS/AFEBRILE. WILL REPORT TO DAY RN.
[2025-05-08 05:40] VITALS: BP 110/50
[2025-05-08] MEDS ORDERED: Mag Sulfate 1 GM/D5% 100ML 100 ML IV STA (07:39)
[2025-05-08 07:43] VITALS: BP 114/66
--- NOTE | 2025-05-08 09:00 | NUR ---
Pt laying in bed with eyes closed, wakes easily, is confused and speech is very difficult to understand, he is redirectable and cooperative at this time, is impulsive, a/ox2-3, lungs are clear in upper [place], dim in bases, resp even and unlabored, no cough noted, hrr, 2-3+ edema noted to b/l le, cap refill<3 sec, vs stable, afebrile, piv to rac, site is positional, bt x4, abd flat soft nontender, voids without diff, skin c/w/d, maew, up to bathroom indep, k[place], call light in reach.
--- NOTE | 2025-05-08 12:55 | NUR ---
Pt came out in the caballero several times with all his belongings, confused, states he has to leave, redirected back to his room, after speaking to charge nurse moved him to [facility] after giving [place] report, he came out in caballero again so walked him to his new room with all his belongings.
[2025-05-08 15:44] VITALS: BP 104/67
--- NOTE | 2025-05-08 18:20 | NUR ---
SHIFT SUMMARY: PATIENT ARRIVED IN ROOM 346 FROM ROOM 361. PATIENT NOTED TO BE WONDERING HALLS AND ENTERING INTO OTHER PATIENT ROOMS BEFORE COMING TO THE SCU. PATIENT GIVEN SEROQUEL PER NURSE RIOS ODONNELL WITH GREAT MOOD AND ANXIETY IMPROVEMENT. PATIENT PLEASANT AND COOPERATIVE WITH CARE AT THIS TIME. ABX GIVEN THROUGHOUT SHIFT D/T BLE CELLULITIS. PATIENT REMAINS IND IN ROOM AT THIS TIME AND IS CONT/INC. PLAN TO GO BACK TO [facility] HOSP[facility] 05/09/25.
[2025-05-08 19:39] VITALS: BP 115/85
--- NOTE | 2025-05-09 04:15 | NUR ---
A&OX2 SELF AND SITUATION. PATIENT HAS DEMENTIA AT BASELINE. DNR. SBA DUE TO BLE CELLULITIS/WEAKNESS. HX DEMENTIA, COPD, HTN, GERD. PATIENT IS ON CONSISTENT CARB DIET, INDEPENDENT FEEDING. PATIENT IS CONTINENT OF BOWEL AND BLADDER BUT NEEDS SHAREPOINT NET DEVELOPER TO BSC DUE TO WEAKNESS. PATIENT HAS IV ACCESS AT HIS RIGHT FOREARM, SALINE LOCKED. BREATHING IS EVEN AND UNLABORED ON RA. PATIENT TAKES MEDICATIONS WHOLE WITH WATER. PRN ORDER FOR ROXICODONE ADMINISTERED AT 22:04.BILATERAL LOWER EXTREMITIES ARE SWOLLEN, RED, HOT AND PAINFUL.
[2025-05-09 05:13] VITALS: BP 110/76
[2025-05-09 07:40] VITALS: BP 130/86
[2025-05-09 16:05] VITALS: BP 129/71
--- NOTE | 2025-05-09 17:08 | NUR ---
SHIFT SUMMARY PATIENT WAS EDUCATED ON FOLLOW-UP APPOINTMENTS, MEDICATIONS, AND DISCHARGE PLANS. PATIENT IV WAS REMOVED, STAFF AND PATIENT WENT OVER THE ROOM TOGETHER AND NO BELONGINGS WERE LEFT. NO SIGNS OF DISTRESS NOTED. [facility].
--- NOTE | 2025-05-09 17:15 | NUR ---
THIS BUSINESS AND FINANCIAL COUNSEL HAS REVIEWED AND AGREES WITH ALL NOTES AND ASSESSMENTS.
== END 2025-05-09 16:40 | disposition hospice, home (50) | DRG 603 ==
LOC: ER 22:08 → MEDS 22:09
PROVIDERS: Emergency Medicine; ADMIT Student in an Organized Health Care Education/Training Program
DX: L03.115 Cellulitis of right lower limb (principal); F02.811 Dementia in other diseases classified elsewhere, unspecified severity, with agitation; L03.116 Cellulitis of left lower limb; G30.9 Alzheimer's disease, unspecified; Z51.5 Encounter for palliative care; Z66 Do not resuscitate; I87.8 Other specified disorders of veins; J44.9 Chronic obstructive pulmonary disease, unspecified; M54.9 Dorsalgia, unspecified; I10 Essential (primary) hypertension; G89.29 Other chronic pain; E83.42 Hypomagnesemia; Z79.891 Long term (current) use of opiate analgesic; Z72.0 Tobacco use
CPT/HCPCS: 80053; 83605; 83735; 83880; 85025; 94760; 96361; 96365; 96366; 96374; 99284; A9270; G0378; J0690; J1650; J7030; J7050; J7120